=== PATIENT | female | born 1945 | race Caucasian/White ===

== ENCOUNTER 2018-10-18 15:52 | Inpatient (IN) | payer MEDICARE, OTHER ==
[~2018-10-18] VITALS: Ht 154.9 cm; Wt 69.9 kg
[~2018-10-18 15:52] MED LIST: ALEN70TA6 PO; AMLO5TAB9 PO; ASPI-605 PO; ATOR10TA PO; CALC-838 PO; DOCU100C36 PO; FAMO20TA8 PO; FLUT1DIS3 IH; LOSA50TA39 PO; NITR0.4T48 SL; OLAN2.5T3 PO; OMEG1CAP PO; OXYB5TAB PO; PARO20TA7 PO; POTA20TA83 PO; SUCR1TAB PO
--- NOTE | 2018-10-18 16:41 | NUR ---
Psych evaluation "I think shes having a mental breakdown. Paranoid/anxiety". PT BROUGHT IN BY FAMILY MEMBERS. STATED SAME THING HAPPENED 2 YEARS AGO, OBSSESSING OVER SIMPLE THING SUCH HOUSEWORK. NO ACUTE DISTRESS NOTED. SKIN INTACT. READY FOR EVAL.
[2018-10-18 17:09] LABS: BASOPHILS # (AUTO) 0.1 /CMM (0.0-0.2); BASOPHILS % (AUTO) 0.8 % (0.0-2.0); EOSINOPHILS % (AUTO) 0.7 % (0.0-6.0); HEMATOCRIT 37 % (33-45); HEMOGLOBIN 11.9 g/dL (11.5-14.8); LYMPHOCYTES # (AUTO) 2.1 /CMM (0.8-4.8); LYMPHOCYTES % (AUTO) 27.2 % (20.0-44.0); MEAN CORPUSCULAR HGB CONC 32 g/dl (31.0-36.0); MEAN CORPUSCULAR VOLUME 86 fL (82-100); MONOCYTES # (AUTO) 0.7 /CMM (0.1-1.30); MONOCYTES % (AUTO) 8.8 % (2.0-12.0); NEUTROPHILS # (AUTO) 4.8 /CMM (1.8-8.9); NEUTROPHILS % (AUTO) 62.5 % (43.0-81.0); PLATELET COUNT (AUTO) 269 /CMM (150-450); WHITE BLOOD COUNT (AUTO) 7.6 K/uL (4.3-11.0)
--- NOTE | 2018-10-18 17:16 | NUR ---
PT TAKEN TO CT VIA WC
[2018-10-18 17:19] LABS: CALCIUM, SERUM 9.2 mg/dL (8.5-10.1); CARBON DIOXIDE 27 mmol/L (21-32); CHLORIDE 107 mmol/L (98-107); CREATININE 0.8 mg/dL (0.6-1.3); GLUCOSE 92 mg/dL (74-106); POTASSIUM 3.2 mmol/L (3.5-5.1); SODIUM SERUM 142 mmol/L (136-145); UREA NITROGEN, BLOOD 23 mg/dL (7-18)
[2018-10-18 17:24] LABS: ALANINE AMINOTRANSFERASE 28 U/L (12-78); ALBUMIN 3.9 g/dL (3.4-5.0); ALKALINE PHOSPHATASE 75 U/L (46-116); ASPARTATE AMINOTRANSFERASE 16 U/L (15-37); BILIRUBIN,DIRECT 0.2 mg/dL (0.0-0.2); BILIRUBIN,TOTAL 0.6 mg/dL (0.2-1.0); TOTAL PROTEIN, SERUM 7.4 g/dL (6.4-8.2)
[2018-10-18 17:26] LABS: ACETAMINOPHEN < 2 ug/ml (10-30); ALCOHOL, BLOOD < 3 mg/dL (0-0); SALICYLATE < 2.8 mg/dL (2.8-20.0)
--- NOTE | 2018-10-18 17:32 | NUR ---
PROVIDED WATER PER PT REQUEST
--- NOTE | 2018-10-18 18:07 | NUR ---
URINE COLLECTED AND SENT TO STAT LAB
[2018-10-18 18:11] LABS: APPEARANCE,URINE Clear (CLEAR); BILIRUBIN,URINE Negative (NEGATIVE); BLOOD, URINE Trace-intact Ery/uL (NEGATIVE); COLOR,URINE Yellow (YELLOW); KETONES,URINE 15 (NEGATIVE); LEUKOCYTE ESTERASE ,URINE Trace (NEGATIVE); NITRITE, URINE Negative (NEGATIVE); PROTEIN,URINE 30 mg/dl (NEGATIVE); UGLUCOSE Negative (NEGATIVE); UROBILINOGEN,URINE 0.2 EU/dL (0.2)
--- NOTE | 2018-10-18 18:23 | NUR ---
PT RESTING IN BED WITH FAMILY MEMBERS. NO COMPLAINTS AT THIS TIME. VSS. WILL CONT TO MONITOR.
[2018-10-18 18:28] LABS: BACTERIA,URINE Moderate /HPF (None Seen); HYALINE CASTS, URINE Moderate /LPF (None Seen); SQUAMOUS EPITHELIAL CELL,UR Moderate /HPF (None Seen)
--- NOTE | 2018-10-18 18:43 | NUR ---
PAGED VACCINE SPECIALIST FOR [facility] HOPE DIRECTOR OPERATING ROOM - ETA 60 MIN
[2018-10-18] MEDS ORDERED: LORAZEPAM 1 MG TABLET PO ONE (19:00)
--- NOTE | 2018-10-18 19:21 | NUR ---
PERENNIAL HOUSE MANAGER PINKY AT BEDSIDE FOR EVAL
[2018-10-18] MEDS ORDERED: LORAZEPAM 0.5 MG TABLET ONE (19:27)
--- NOTE | 2018-10-18 20:23 | NUR ---
REPORT GIVEN TO MELLISSA FOR 214-A
--- NOTE | 2018-10-18 20:25 | NUR ---
GPS REQUEST XRAY TO BE COMPLETED BEFORE TRANSFER
--- NOTE | 2018-10-18 21:17 | NUR ---
PT TRANSFERRED TO FLOOR VIA WC
[2018-10-18 21:20] VITALS: BP 146/81
--- NOTE | 2018-10-18 21:20 | NUR ---
GPS ADMISSION NOTE, RECEIVED PATIENT FROM [facility] / [place]. PATIENT ARRIVED ON THIS UNIT AT 2120 VIA STRETCHER WITH 1 USABILITY STRATEGIST ESCORT. PATIENT ADMITTED ON A 5150 HOLD FOR GD. PER HOLD PATIENT IS CONFUSED, DISORGANIZED, AND DISORIENTED. ACCORDING TO PATIENT SISTER (RAO) PATIENT HAS BEEN INCREASINGLY ANXIOUS, RESTLESS, CONSTANTLY PACING, NOT EATING, NOT SLEEPING, EXHIBITING BIZARRE BEHAVIOR, AND OBSESSED WITH SMALL THINGS ASSOCIATED WITH PARANOIA. PATIENT HAS BEEN REFUSING MEDICATIONS AND IS UNABLE TO CARE FOR SELF. THE 5150 WAS REVIEWED AND THE DOCUMENTATION IN THE 5150 HOLD APPEARS TO REFLECT THE PRESENTATION OF THE PATIENT. UPON FACE TO FACE ASSESSMENT PATIENT IS CURRENTLY LYING IN BED AWAKE, HAS NO S/S OR COMPLAINTS OF PAIN. PATIENT IS DISPLAYING NO S/S OF APPARENT DISTRESS. PATIENT BREATHING IS UNLABORED WITH EQUAL RISE AND FALL OF THE CHEST. PATIENT IS ALERT AND ORIENTATED X 2 ON ROOM AIR. PATIENT SPEAKS MOSTLY MALTESE BUT UNDERSTANDS SOME BARBADIAN. PATIENT ASSISTED WITH TURING AND REPOSITIONING Q2HR AND PRN FOR COMFORT AND CIRCULATION. PATIENT HAS NO NEEDS AT THIS TIME. PATIENT IS NOTED TO BEING WITHDRAWN, DEPRESSED, DISHEVELED, DISORGANIZED, CONFUSED, COOPERATIVE, AND NEEDS REDIRECTION. PATIENT DENIES SUICIDE IDEATIONS AND HOMICIDAL IDEATIONS AT THIS TIME. PATIENT IS UNDER THE PSYCHIATRIC CARE OF DR. SERRANO AND THE MEDICAL CARE OF DR GUNN. PATIENT BELONGINGS WERE INVENTORIED AND CHECKED FOR CONTRABAND. ALL CONTRABAND REMOVED AND STORED IN PATIENT HALLWAY LOCKER. PATIENT ADVANCED DIRECTIVES PREFERENCE, IMMUNIZATIONS QUESTIONER, NECESSARY PAPERWORK, AND SKIN ASSESSMENT COMPLETED. PATIENT ORIENTATED TO ROOM, FLOOR, AND STAFF WITH ALL QUESTIONS ANSWERED. PATIENT EDUCATED ON THE USE OF THE CALL LOTT. PATIENT BED SIDE RAILS ARE UP X 2 FOR SAFETY. PATIENT BED IS LOCKED, LOW AND I WILL CONTINUE TO MONITOR THIS PATIENT Q 15 MIN WITH THE HELP OF STAFF TO MAINTAIN SAFETY.
[2018-10-18] MEDS ORDERED: ACETAMINOPHEN 325 MG TABLET PO PRN (21:30)
[2018-10-18] MEDS ORDERED: MAG HYDROX/AL HYDROX/SIMETH 30 ML UDC PO PRN (21:30)
[2018-10-18] MEDS ORDERED: LORAZEPAM 0.5 MG TABLET PO PRN (21:30)
[2018-10-18] MEDS ORDERED: MAGNESIUM HYDROXIDE 30 ML UDC PO PRN (21:30)
[2018-10-18] MEDS ORDERED: TEMAZEPAM 7.5 MG CAPSULE PO PRN (21:30)
[2018-10-18] MEDS ORDERED: ALBU18HF2 INH (21:57)
[2018-10-18] MEDS ORDERED: OLOP5DRO EACHEYE (21:59)
[2018-10-18] MEDS ORDERED: POTASSIUM CHLORIDE 20 MEQ TAB.PRT.SR PO ONE (22:00)
[2018-10-18] MEDS ORDERED: CYCL30DR EACHEYE (22:00)
[2018-10-18] MEDS ORDERED: CEPHALEXIN MONOHYDRATE 500 MG CAPSULE PO SCH (22:00)
[2018-10-18] MEDS ORDERED: RANI150T8 PO (22:01)
[2018-10-18] MEDS ORDERED: MECL-102 PO (22:03)
[2018-10-18] MEDS ORDERED: CETI-102 PO (22:04)
[2018-10-18] MEDS ORDERED: FLUT1DIS3 INH (22:05)
[2018-10-18] MEDS ORDERED: LEVOFLOXACIN (500MG) 500 MG TABLET PO ONE (22:30)
[2018-10-18] MEDS: ATORVASTATIN 10 MG TABLET PO SCH (22:32)
[2018-10-18] MEDS: SUCRALFATE 1 G TABLET PO SCH (22:32)
[2018-10-18] MEDS ORDERED: ALBUTEROL FS 2.5 MG/3 ML VIAL.NEB NEB PRN (23:00)
[2018-10-19 07:24] LABS: CREATININE 0.8 mg/dL (0.6-1.3)
[2018-10-19 07:29] LABS: CHOLESTEROL 152 mg/dL (<200); HDL CHOLESTEROL 80 mg/dL (40-60); LDL 67 mg/dL (0-99); TRIGLYCERIDES 52 mg/dL (30-150)
[2018-10-19 08:00] VITALS: BP 123/67
[2018-10-19] MEDS: CALCIUM CARB 250MG /VITAMIN D 1 UDTAB PO SCH (08:22)
[2018-10-19] MEDS: SUCRALFATE 1 G TABLET PO SCH ×4 (08:22→21:44)
[2018-10-19] MEDS: AMLODIPINE BESYLATE 5 MG TABLET PO SCH (08:51)
[2018-10-19] MEDS: OXYBUTYNIN CHLORIDE ER 5 MG TAB PO SCH (08:51)
[2018-10-19] MEDS: FAMOTIDINE (20 MG) 20 MG TABLET PO SCH ×2 (08:52→17:00)
[2018-10-19] MEDS: LOSARTAN POTASSIUM 50 MG TABLET PO SCH (08:52)
[2018-10-19] MEDS: DOCUSATE SODIUM 100 MG CAPSULE PO SCH ×2 (08:54→17:00)
[2018-10-19] MEDS: FLUTICASONE/VILANTEROL 1 EACH BLST.W.DEV IH SCH (08:58)
[2018-10-19] MEDS ORDERED: ASPIRIN EC 81 MG TABLET.DR PO SCH (09:00)
[2018-10-19] MEDS ORDERED: VENLAFAXINE XR 37.5 MG CAP.SR.24H PO SCH (13:00)
--- NOTE | 2018-10-19 15:45 | NUR ---
SW spoke with pts sister Dinah [phone] regarding pts discharge plan. Sister stated pt will return home once discharged. Sister also provided SW with collateral information and stated shes pts [facility] caregiver.
[2018-10-19 16:00] VITALS: BP 135/67
[2018-10-19 20:43] VITALS: BP 100/72
[2018-10-19] MEDS: MIRTAZAPINE 15 MG TABLET PO SCH (21:44)
[2018-10-19] MEDS: ATORVASTATIN 10 MG TABLET PO SCH (21:44)
[2018-10-19] MEDS: LEVOFLOXACIN (250MG) 250 MG TABLET PO SCH (21:45)
[2018-10-19] MEDS ORDERED: risperiDONE 0.25 MG TABLET PO SCH (22:00)
[2018-10-20] MEDS: SUCRALFATE 1 G TABLET PO SCH ×4 (07:30→22:00)
[2018-10-20] MEDS: CALCIUM CARB 250MG /VITAMIN D 1 UDTAB PO SCH (07:30)
[2018-10-20 08:00] VITALS: BP 121/59
[2018-10-20] MEDS: FLUTICASONE/VILANTEROL 1 EACH BLST.W.DEV IH SCH (09:00)
[2018-10-20] MEDS: AMLODIPINE BESYLATE 5 MG TABLET PO SCH (09:00)
[2018-10-20] MEDS: DOCUSATE SODIUM 100 MG CAPSULE PO SCH ×2 (09:00→17:00)
[2018-10-20] MEDS: FAMOTIDINE (20 MG) 20 MG TABLET PO SCH ×2 (09:00→17:00)
[2018-10-20] MEDS: OXYBUTYNIN CHLORIDE ER 5 MG TAB PO SCH (09:00)
[2018-10-20] MEDS: LOSARTAN POTASSIUM 50 MG TABLET PO SCH (09:00)
--- NOTE | 2018-10-20 10:08 | NUR ---
INITIAL DISCHARGE PLAN: Patient wishes to return home to [id number] [place] [id number]. Pts sister Dinah [phone] has confirmed that it is safe for pt to return home once stable for discharge. SW will help form a safe and proper discharge in collaboration with .
[2018-10-20] MEDS: risperiDONE 0.25 MG TABLET PO SCH ×2 (13:30→17:00)
[2018-10-20 16:00] VITALS: BP 159/99
--- NOTE | 2018-10-20 17:51 | NUR ---
PT. SEEN ON THE VERY SIDE OF THE BED, DENIES HE FELL, HE SAID THAT HIS COFFEE FALL IN THE FLOOR. NO PAIN REPORTED. WILL CONTINUE TO MONITOR FOR SAFETY. Addendum: 10/20/18 at 1756 by CARLITOS SARKAR RN THIS DOCUMENTATION IS NOT FOR THIS PT.
[2018-10-20 20:00] VITALS: BP 130/87
[2018-10-20] MEDS: LEVOFLOXACIN (250MG) 250 MG TABLET PO SCH (22:00)
[2018-10-20] MEDS: MIRTAZAPINE 15 MG TABLET PO SCH (22:00)
[2018-10-20] MEDS: ATORVASTATIN 10 MG TABLET PO SCH (22:00)
--- NOTE | 2018-10-20 22:37 | NUR ---
REFUSED HER NIGHT MEDIATIONS, OFFERED TWICE AT 2100 AND AT 2200, SHE REPEATEDLY STATED, " NO, NOT TODAY." NOTIFIED CHARGE NURSE. AWARE IN THE DAYTIME, MEDS WERE REFUSED ALSO.
--- NOTE | 2018-10-21 00:18 | NUR ---
PATIENT WAS OFFERED SLEEPING PILLS, PATIENT REFUSED AGAIN.
[2018-10-21] MEDS: CALCIUM CARB 250MG /VITAMIN D 1 UDTAB PO SCH (07:30)
[2018-10-21] MEDS: SUCRALFATE 1 G TABLET PO SCH ×4 (07:30→22:00)
[2018-10-21 08:00] VITALS: BP 142/90
[2018-10-21] MEDS: FLUTICASONE/VILANTEROL 1 EACH BLST.W.DEV IH SCH (08:13)
[2018-10-21] MEDS: OXYBUTYNIN CHLORIDE ER 5 MG TAB PO SCH (08:14)
[2018-10-21] MEDS: risperiDONE 0.25 MG TABLET PO SCH ×3 (08:14→16:08)
[2018-10-21] MEDS: FAMOTIDINE (20 MG) 20 MG TABLET PO SCH ×2 (08:14→16:08)
[2018-10-21] MEDS: AMLODIPINE BESYLATE 5 MG TABLET PO SCH (08:14)
[2018-10-21] MEDS: DOCUSATE SODIUM 100 MG CAPSULE PO SCH ×2 (08:14→16:08)
[2018-10-21] MEDS: LOSARTAN POTASSIUM 50 MG TABLET PO SCH (08:14)
[2018-10-21] MEDS: VENLAFAXINE XR 37.5 MG CAP.SR.24H PO SCH (12:33)
[2018-10-21 16:00] VITALS: BP 151/90
--- NOTE | 2018-10-21 18:58 | NUR ---
DR. MENDOZA MADE AWARE OF PATIENT'S REFUSAL OF MEDICATIONS AND FOOD. NO NEW ORDER AT THIS TIME. PER MD, KEEP ENCOURAGING PATIENT.
[2018-10-21 20:00] VITALS: BP 112/92
[2018-10-21] MEDS: ATORVASTATIN 10 MG TABLET PO SCH (22:00)
[2018-10-21] MEDS: MIRTAZAPINE 15 MG TABLET PO SCH (22:00)
[2018-10-21] MEDS: LEVOFLOXACIN (250MG) 250 MG TABLET PO SCH (22:00)
--- NOTE | 2018-10-21 22:41 | NUR ---
REFUSED ALL HER NIGHT MEDICATIONS, ATTEMPTED X3, STILL REFUSED.
--- NOTE | 2018-10-22 04:40 | NUR ---
REFUSED SLEEPING PILL OFFERED LAST NIGHT
[2018-10-22] MEDS: CALCIUM CARB 250MG /VITAMIN D 1 UDTAB PO SCH (07:30)
[2018-10-22] MEDS: SUCRALFATE 1 G TABLET PO SCH ×4 (07:30→21:06)
[2018-10-22] MEDS: LOSARTAN POTASSIUM 50 MG TABLET PO SCH (08:54)
[2018-10-22] MEDS: DOCUSATE SODIUM 100 MG CAPSULE PO SCH ×2 (08:54→17:00)
[2018-10-22] MEDS: FLUTICASONE/VILANTEROL 1 EACH BLST.W.DEV IH SCH (08:54)
[2018-10-22] MEDS: FAMOTIDINE (20 MG) 20 MG TABLET PO SCH ×2 (08:55→17:00)
[2018-10-22] MEDS: AMLODIPINE BESYLATE 5 MG TABLET PO SCH (08:55)
[2018-10-22] MEDS: OXYBUTYNIN CHLORIDE ER 5 MG TAB PO SCH (08:55)
[2018-10-22] MEDS: risperiDONE 0.25 MG TABLET PO SCH ×3 (08:55→17:00)
[2018-10-22 12:30] LABS: BASOPHILS # (AUTO) 0.1 /CMM (0.0-0.2); EOSINOPHILS % (AUTO) 0.2 % (0.0-6.0); HEMATOCRIT 40 % (33-45); HEMOGLOBIN 12.8 g/dL (11.5-14.8); LYMPHOCYTES # (AUTO) 1.8 /CMM (0.8-4.8); LYMPHOCYTES % (AUTO) 18.1 % (20.0-44.0); MEAN CORPUSCULAR HGB CONC 32 g/dl (31.0-36.0); MEAN CORPUSCULAR VOLUME 86 fL (82-100); MONOCYTES # (AUTO) 0.8 /CMM (0.1-1.30); MONOCYTES % (AUTO) 8.2 % (2.0-12.0); NEUTROPHILS # (AUTO) 7.1 /CMM (1.8-8.9); NEUTROPHILS % (AUTO) 72.5 % (43.0-81.0); PLATELET COUNT (AUTO) 284 /CMM (150-450); RED BLOOD CELL COUNT(AUTO) 4.62 MIL/uL (4.0-5.2); WHITE BLOOD COUNT (AUTO) 9.8 K/uL (4.3-11.0)
[2018-10-22 12:41] LABS: CARBON DIOXIDE 23 mmol/L (21-32); CHLORIDE 105 mmol/L (98-107); CREATININE 1.5 mg/dL (0.6-1.3); GLUCOSE 99 mg/dL (74-106); MAGNESIUM 2.4 mg/dL (1.8-2.4); PHOSPHORUS 4.1 mg/dL (2.5-4.9); SODIUM SERUM 141 mmol/L (136-145); UREA NITROGEN, BLOOD 56 mg/dL (7-18)
[2018-10-22] MEDS: VENLAFAXINE XR 37.5 MG CAP.SR.24H PO SCH (13:00)
[2018-10-22 16:00] VITALS: BP 108/59
--- NOTE | 2018-10-22 18:03 | NUR ---
GPS/RN pt refused daily meds today offered on numerous occasions. communicated via Vietnamese speaking SHIPPER/RECEIVER's
[2018-10-22 20:36] VITALS: BP 107/57
[2018-10-22] MEDS: LEVOFLOXACIN (250MG) 250 MG TABLET PO SCH (21:06)
[2018-10-22] MEDS: ATORVASTATIN 10 MG TABLET PO SCH (21:06)
[2018-10-22] MEDS: MIRTAZAPINE 15 MG TABLET PO SCH (21:07)
--- NOTE | 2018-10-22 23:17 | NUR ---
GPS RN NOTE: BUN/56, CREATININE/1.5. CHARGE NURSE AWARE. PATIENT NOT EATING, AND REFUSED TO DRINK, WAS OFFERED SEVERAL TIMES BUT WOULD NOT TAKE FLUIDS NOR EAT. Addendum: 10/23/18 at 1556 by MARICRUZ BEAR RN GPS RN NOTE: DR ALAN MADE AWARE OF ABN BUN=57 & CR =1.5... HE SAID HE WILL F/U WITH PATIENT ABN LABS, NO LIQUID OR SOLID INTAKE.
[2018-10-23] MEDS: SUCRALFATE 1 G TABLET PO SCH ×4 (07:30→21:03)
[2018-10-23] MEDS: CALCIUM CARB 250MG /VITAMIN D 1 UDTAB PO SCH (07:30)
[2018-10-23 08:00] VITALS: BP 104/84
[2018-10-23] MEDS: LOSARTAN POTASSIUM 50 MG TABLET PO SCH (09:00)
[2018-10-23] MEDS: risperiDONE 0.25 MG TABLET PO SCH ×3 (09:00→16:32)
[2018-10-23] MEDS: OXYBUTYNIN CHLORIDE ER 5 MG TAB PO SCH (09:00)
[2018-10-23] MEDS: FAMOTIDINE (20 MG) 20 MG TABLET PO SCH ×2 (09:00→16:32)
[2018-10-23] MEDS: AMLODIPINE BESYLATE 5 MG TABLET PO SCH (09:00)
[2018-10-23] MEDS: DOCUSATE SODIUM 100 MG CAPSULE PO SCH ×2 (09:00→16:33)
[2018-10-23] MEDS: FLUTICASONE/VILANTEROL 1 EACH BLST.W.DEV IH SCH (09:00)
[2018-10-23] MEDS: VENLAFAXINE XR 37.5 MG CAP.SR.24H PO SCH (12:06)
[2018-10-23 16:00] VITALS: BP 125/91
[2018-10-23 20:00] VITALS: BP 102/73
[2018-10-23 20:08] VITALS: BP 102/73
[2018-10-23] MEDS: ATORVASTATIN 10 MG TABLET PO SCH (21:04)
[2018-10-23] MEDS: MIRTAZAPINE 15 MG TABLET PO SCH (21:04)
[2018-10-23] MEDS: LEVOFLOXACIN (250MG) 250 MG TABLET PO SCH (21:04)
--- NOTE | 2018-10-23 21:04 | NUR ---
RN NOTES PT REFUSING ALL PM MEDICATIONS DESPITE EDUCATION ON RISKS/BENEFITS X3. ABLE TO COMMUNICATE IN PASHTO. PASHTO SPEAKING NETSUITE CONSULTANT ALSO TO ASSIST, BUT PT STILL REFUSING. REFUSING ALL PO INTAKE AT THE MOMENT WELL. SUBGRADE TESTER AWARE Addendum: 10/23/18 at 2129 by ALISSA MACK RN ON PREVIOUS ATTEMPT TO GIVE PT MEDS, WASTED CARAFATE AND REMERON DUE TO PACKAGING BEING OPENED. RETURNED LEVAQUIN AND LIPITOR TO THE [facility]. ATTEMPTED TO GIVE PT HER MEDICATIONS CRUSHED WITH APPLE SAUCE INSTEAD OF WHOLE WITH APPLE JUICE PER SUBGRADE TESTER. PT STILL REFUSING DESPITE HELP FROM NETSUITE CONSULTANT'S. CLENCHING TEETH AND UNWILLING TO OPEN MOUTH. MEDICATIONS WASTED, SUBGRADE TESTER AWARE AGAIN.
--- NOTE | 2018-10-24 00:31 | NUR ---
TECH AT BEDSIDE FOR US BLADDER/KIDNEYS. TECH UNABLE TO GET US BLADDER POST VOID DUE TO PT UNABLE TO VOID AT THIS TIME Addendum: 10/24/18 at 0041 by ALISSA MACK RN PER US TECH, CANCEL ORDER FOR US BLADDER. ORDER FOR US KIDNEY AUTOMATICALLY INCLUDES US BLADDER
--- NOTE | 2018-10-24 06:46 | NUR ---
PT VOIDED IN THE TOILET. RADIOLOGY/ULTRASOUND CALLED FOR POST VOID BLADDER US, NO RESPONSE. WILL ENDORSE TO DAY SHIFT RN
[2018-10-24] MEDS: SUCRALFATE 1 G TABLET PO SCH ×3 (07:30→17:30)
[2018-10-24 08:00] VITALS: BP 110/63
[2018-10-24] MEDS: LOSARTAN POTASSIUM 50 MG TABLET PO SCH (09:00)
[2018-10-24] MEDS: AMLODIPINE BESYLATE 5 MG TABLET PO SCH (09:00)
[2018-10-24] MEDS: risperiDONE 0.25 MG TABLET PO SCH ×2 (09:49→13:54)
[2018-10-24] MEDS: OXYBUTYNIN CHLORIDE ER 5 MG TAB PO SCH (09:49)
[2018-10-24] MEDS: CALCIUM CARB 250MG /VITAMIN D 1 UDTAB PO SCH (09:49)
[2018-10-24] MEDS: FAMOTIDINE (20 MG) 20 MG TABLET PO SCH ×2 (09:50→17:00)
[2018-10-24] MEDS: DOCUSATE SODIUM 100 MG CAPSULE PO SCH ×2 (09:50→17:00)
[2018-10-24] MEDS: FLUTICASONE/VILANTEROL 1 EACH BLST.W.DEV IH SCH (09:52)
[2018-10-24 11:44] LABS: CALCIUM, SERUM 10.1 mg/dL (8.5-10.1); CARBON DIOXIDE 22 mmol/L (21-32); CHLORIDE 106 mmol/L (98-107); CREATININE 2.2 mg/dL (0.6-1.3); GLUCOSE 205 mg/dL (74-106); POTASSIUM 3.5 mmol/L (3.5-5.1); SODIUM SERUM 141 mmol/L (136-145); UREA NITROGEN, BLOOD 75 mg/dL (7-18)
[2018-10-24] MEDS: VENLAFAXINE XR 37.5 MG CAP.SR.24H PO SCH (13:54)
[2018-10-24 16:00] VITALS: BP 117/52
--- NOTE | 2018-10-24 16:00 | NUR ---
RN-CO: Dr Howe seen and examined the patient with order to discharge patient to medical floor for elevated BUN 75. Continue legal hold.
[2018-10-24] MEDS ORDERED: risperiDONE 0.25 MG TABLET PO SCH ×2 (17:00)
--- NOTE | 2018-10-24 17:33 | NUR ---
RN NOTE: NOTIFIED WITH RESULT OF BUN 75 AND CREATININE 2.2 WITH NEW ORDER TO TRANSFER MED SURGE , REPORT GIVEN TO RONNY MILLER AND PATIENT TRANSFERRED ON 5250 HOLD WITH SITTER TO MED SURGE FLOOR .
[2018-10-24] MEDS ORDERED: CALC-7 PO (18:18)
[2018-10-24] MEDS ORDERED: MAG30ORA PO (18:18)
[2018-10-24] MEDS ORDERED: TEMA7.5C12 PO (18:18)
[2018-10-24] MEDS ORDERED: LEVO250T59 PO (18:18)
[2018-10-24] MEDS ORDERED: ACET-868 PO (18:18)
[2018-10-24] MEDS ORDERED: LORA0.5T PO (18:18)
[2018-10-24] MEDS ORDERED: ALBU2.5V38 IH (18:18)
[2018-10-24] MEDS ORDERED: RISP0.253 PO (18:18)
[2018-10-24] MEDS ORDERED: FLUT1BLS IH (18:18)
[2018-10-24] MEDS ORDERED: MAGN400O6 PO (18:18)
== END 2018-10-24 18:08 | disposition home or self-care (01) | DRG 885 ==
LOC: ER 15:57 → GPS 20:01
PROVIDERS: ADMIT Psychiatry & Neurology Psychosomatic Medicine; ATTEND Psychiatry & Neurology Psychosomatic Medicine
DX: F29 Unspecified psychosis not due to a substance or known physiological condition (principal); F01.50 Vascular dementia, unspecified severity, without behavioral disturbance, psychotic disturbance, mood disturbance, and anxiety; N17.0 Acute kidney failure with tubular necrosis; G93.41 Metabolic encephalopathy; F32.3 Major depressive disorder, single episode, severe with psychotic features; N39.0 Urinary tract infection, site not specified; E87.6 Hypokalemia; K21.9 Gastro-esophageal reflux disease without esophagitis; I10 Essential (primary) hypertension; Z87.11 Personal history of peptic ulcer disease; Z88.0 Allergy status to penicillin; R33.9 Retention of urine, unspecified
CPT/HCPCS: 36415; 70450-TC; 73080-TC; 76770-TC; 80048-TC; 80061-TC; 80076-TC; 80305; 81000-TC; 82565-TC; 83735-TC; 84100-TC; 84484-TC; 85025-TC; 87081-TC; 87086-TC; 94799-TC; G0480

== ENCOUNTER 2018-10-24 16:58 | Inpatient (IN) | payer MEDICARE, OTHER ==
[~2018-10-24] VITALS: Ht 154.9 cm; Wt 69.9 kg
[~2018-10-24 16:58] MED LIST changes: +ALBU18HF2 INH; +CETI-102 PO; +CYCL30DR EACHEYE; +FLUT1DIS3 INH; +MECL-102 PO; +OLOP5DRO EACHEYE; +RANI150T8 PO
--- NOTE | 2018-10-24 17:30 | NUR ---
MS RN NOTES PATIENT ARRIVED ON FLOOR FROM GPS ALERT, ORIENTED X1. CONFUSED. PATIENT SEEMS DEPRESSED. PATIENT REFUSED DETAILED SKIN ASSESSMENT. PATIENT SITTING ON CHAIR WITH SITTER AT BEDSIDE. PERIPHERAL IV STARTED ON LEFT HAND. DR. ALAN MADE AWARE OF PATIENTS ARRIVAL. MED RECON COMPLETED. WILL CONTINUE TO MONITOR.
[2018-10-24] MEDS ORDERED: LEVO250T59 PO (18:18)
[2018-10-24] MEDS ORDERED: ACET-868 PO (18:18)
[2018-10-24] MEDS ORDERED: TEMA7.5C12 PO (18:18)
[2018-10-24] MEDS ORDERED: CALC-7 PO (18:18)
[2018-10-24] MEDS ORDERED: FLUT1BLS IH (18:18)
[2018-10-24] MEDS ORDERED: RISP0.253 PO (18:18)
[2018-10-24] MEDS ORDERED: MAG30ORA PO (18:18)
[2018-10-24] MEDS ORDERED: LORA0.5T PO (18:18)
[2018-10-24] MEDS ORDERED: MAGN400O6 PO (18:18)
[2018-10-24] MEDS ORDERED: ALBU2.5V38 IH (18:18)
--- NOTE | 2018-10-24 19:24 | NUR ---
MS RN NOTES PATIENT ON NOE CHAIR. ALERT ORIENTED X1. PATIENT MINIMAL RESPONSIVE TO QUESTIONS. SITTER AT BEDSIDE. ENDORSED CARE TO PM SHIFT.
--- NOTE | 2018-10-24 19:30 | NUR ---
MS RN INITIAL NOTES Patient is awake, sitting up in Daija-chair. Appears calm, Equatorial Guinean speaking, denies pain, family at the bedside. Patient is on 5250 hold expires on 11/04/17, sitter at the bedside. Awaiting orders, Dr. Rucker was informed.
[2018-10-24 20:00] VITALS: BP 103/74
[2018-10-24 20:30] VITALS: BP 103/74
[2018-10-24] MEDS ORDERED: TEMAZEPAM 7.5 MG CAPSULE PO PRN (21:00)
[2018-10-24] MEDS ORDERED: ONDANSETRON HCL/PF 4 MG/2 ML VIAL IVP PRN (21:00)
[2018-10-24] MEDS ORDERED: ACETAMINOPHEN 325 MG TABLET PO PRN (21:00)
[2018-10-24] MEDS ORDERED: MAG HYDROX/AL HYDROX/SIMETH 30 ML UDC PO PRN (21:00)
[2018-10-24] MEDS ORDERED: ALENDRONATE 70 MG TABLET PO SCH (21:00)
[2018-10-24] MEDS ORDERED: NITROGLYCERIN 0.4 MG/TAB BOTTLE SL PRN (21:00)
[2018-10-24] MEDS ORDERED: Z GUARD REMEDY 2 OZ OINT TP PRN (21:00)
[2018-10-24] MEDS: IV NS 0.9% 1,000 ML IV PRN (21:50)
[2018-10-24] MEDS: ATORVASTATIN 10 MG TABLET PO SCH (21:59)
[2018-10-24] MEDS: LEVOFLOXACIN (250MG) 250 MG TABLET PO SCH (21:59)
[2018-10-24] MEDS: SUCRALFATE 1 G TABLET PO SCH (22:00)
[2018-10-24] MEDS: OLANZAPINE 2.5 MG TABLET PO SCH (22:00)
[2018-10-25 03:26] LABS: BASOPHILS % (AUTO) 0.9 % (0.0-2.0); EOSINOPHILS % (AUTO) 4.9 % (0.0-6.0); HEMATOCRIT 32 % (33-45); HEMOGLOBIN 10.7 g/dL (11.5-14.8); LYMPHOCYTES # (AUTO) 1.5 /CMM (0.8-4.8); LYMPHOCYTES % (AUTO) 27.1 % (20.0-44.0); MEAN CORPUSCULAR HGB CONC 33 g/dl (31.0-36.0); MEAN CORPUSCULAR VOLUME 87 fL (82-100); MONOCYTES # (AUTO) 0.6 /CMM (0.1-1.30); NEUTROPHILS # (AUTO) 3.2 /CMM (1.8-8.9); NEUTROPHILS % (AUTO) 57.1 % (43.0-81.0); PLATELET COUNT (AUTO) 208 /CMM (150-450); RED BLOOD CELL COUNT(AUTO) 3.75 MIL/uL (4.0-5.2); WHITE BLOOD COUNT (AUTO) 5.6 K/uL (4.3-11.0)
[2018-10-25 03:43] LABS: ALANINE AMINOTRANSFERASE 53 U/L (12-78); ALKALINE PHOSPHATASE 55 U/L (46-116); ASPARTATE AMINOTRANSFERASE 33 U/L (15-37); CALCIUM, SERUM 8.9 mg/dL (8.5-10.1); CARBON DIOXIDE 27 mmol/L (21-32); CHLORIDE 108 mmol/L (98-107); CREATININE 1.6 mg/dL (0.6-1.3); GLUCOSE 105 mg/dL (74-106); MAGNESIUM 2.2 mg/dL (1.8-2.4); PHOSPHORUS 3.9 mg/dL (2.5-4.9); POTASSIUM 3.1 mmol/L (3.5-5.1); SODIUM SERUM 143 mmol/L (136-145); TOTAL PROTEIN, SERUM 5.8 g/dL (6.4-8.2); UREA NITROGEN, BLOOD 73 mg/dL (7-18)
[2018-10-25 03:51] LABS: CHOLESTEROL 125 mg/dL (<200); HDL CHOLESTEROL 45 mg/dL (40-60); LDL 70 mg/dL (0-99); THYROID STIMULATING HORMONE 0.861 uIU/mL (0.358-3.74); TRIGLYCERIDES 57 mg/dL (30-150)
--- NOTE | 2018-10-25 06:29 | NUR ---
MS RN CLOSING NOTES Patient in bed, stable oxygen saturation on RA. IVF infusing, maintained at 100ml/hr, tolerating well. Ambulates independently, standby assist. Voiding without difficulty, denies pain. Patient in on 14 day hold, expires on 11/04/18, sitter at the bedside, psyche following. Will endorse to oncoming RN.
--- NOTE | 2018-10-25 06:53 | NUR ---
Troponin level elevated 0.057 (previous 0.054) patient denies pain, Pulse on 90's. Informed GARRETT Jacobo with no new orders at this time.
[2018-10-25] MEDS: IV NS 0.9% 1,000 ML IV PRN (06:56)
[2018-10-25] MEDS: CALCIUM CARB 250MG /VITAMIN D 1 UDTAB PO SCH (07:30)
[2018-10-25] MEDS: SUCRALFATE 1 G TABLET PO SCH ×4 (07:30→21:42)
[2018-10-25] MEDS ORDERED: ALBUTEROL FS 2.5 MG/3 ML VIAL.NEB NEB PRN (07:35)
--- NOTE | 2018-10-25 07:47 | NUR ---
MS/RN Patient received Patient received from manager shift. A/O X1, confused Serbian speaking only, remains on hold with sitter at bedside. Calm and cooperative at this time, awaiting morning blood draw results. Does not appear in any pain or distress. Will continue to monitor and ensure safety.
[2018-10-25] MEDS: ASPIRIN EC 81 MG TABLET.DR PO SCH (08:44)
[2018-10-25] MEDS: cetrizine 10 MG TABLET PO SCH (08:44)
[2018-10-25] MEDS: DOCUSATE SODIUM 100 MG CAPSULE PO SCH ×2 (08:44→16:50)
[2018-10-25] MEDS: POTASSIUM CHLORIDE 20 MEQ TAB.PRT.SR PO SCH (08:44)
[2018-10-25] MEDS: FAMOTIDINE (20 MG) 20 MG TABLET PO SCH ×2 (08:44→16:51)
[2018-10-25] MEDS: PAROXETINE HCL 20 MG TABLET PO SCH (08:44)
[2018-10-25] MEDS: AMLODIPINE BESYLATE 5 MG TABLET PO SCH (08:47)
[2018-10-25] MEDS: OLOPATADINE HCL 0.1% OPHTH BOTTLE EACHEYE SCH ×2 (08:47→16:50)
[2018-10-25] MEDS: OXYBUTYNIN CHLORIDE ER 5 MG TAB PO SCH (08:47)
[2018-10-25] MEDS: FLUTICASONE/VILANTEROL 1 EACH BLST.W.DEV IH SCH (08:48)
[2018-10-25] MEDS: LOSARTAN POTASSIUM 50 MG TABLET PO SCH (08:48)
[2018-10-25] MEDS ORDERED: risperiDONE 0.25 MG TABLET PO SCH (09:00)
[2018-10-25] MEDS ORDERED: FLUTICASONE/SALMETEROL DISKUS IH SCH (09:00)
[2018-10-25] MEDS: POTASSIUM CL. PREMIX PERIPHER. 50 ML IV SCH ×4 (10:00→13:00)
--- NOTE | 2018-10-25 10:37 | NUR ---
MS/RN S/B Dr Lincoln Seen by Dr Lincoln - to commence IV hydration, cardiology consult for elevated troponins, and psych eval.
[2018-10-25] MEDS: risperiDONE-M 0.5 MG TAB.RAPDIS PO SCH ×2 (12:00→16:51)
[2018-10-25] MEDS ORDERED: VALPROATE 250 MG in IV D5W 100 ML IV SCH (12:00)
--- NOTE | 2018-10-25 12:17 | NUR ---
MS/RN S/B Dr Howe Seen by Dr Howe - unable to administer medications IV as patient is in the process of being RISK and currently waiting court date. If patient becomes severely agitated, than MD to be called and order will be given for IM medication to calm patient. Continue with current plan of care.
--- NOTE | 2018-10-25 14:56 | NUR ---
MS/RN Rounds Patient remains calm and cooperative at this time, sitter remains at bedside.
[2018-10-25 16:00] VITALS: BP 113/76
--- NOTE | 2018-10-25 18:10 | NUR ---
MS/RN End note Continues to refuse to take any oral medications, Dr Howe aware. Stated that medications could not be forced upon the patient until riese hearing which is scheduled for tomorrow. Family at bedside and updated as to plan of care. Will endorse to production shift supervisor.
--- NOTE | 2018-10-25 18:28 | NUR ---
MS/RN Room change Patient moved into room 327-1 due to isolation of previous patient.
--- NOTE | 2018-10-25 18:38 | NUR ---
MS/RN Turn and reposition Patient able to turn and reposition herself without any assistance.
--- NOTE | 2018-10-25 19:10 | NUR ---
RN MS OPENING NOTES RECEIVED PATIENT AWAKE ALERT AND ORIENTED X1 , CONFUSED AND REFUSIVE TO CARE AND MEDS AND RESISTIVE TO CARE, DESPITE EXPLANATION, PATIENT IS CURRENTLY IN HALLWAY WITH SITTER WALKING, REFUSES TO GO IN ROOM, OR SIT AT THIS TIME DESPITE CHAIR BEING OFFERED, HOWEVER SHE IS STEADY WALKING, BED SIDE COMMODE OFFERED , PATIENT REFUSED, REFUSING IV HYDRATION AT THIS TIME WELL. FLUIDS AND WATER OFFERED, 1 JUICE TAKEN, NO WATER AT THIS TIME, WILL CONTINUE TO OFFER AND MONITOR FOR URINE OUTPUT, PATIENT IS ON A 52/50 HOLD, SITTER AT BEDSIDE, IV SITE TO RIGHT WRIST #22 G INTACT AND PATENT, NO REDNESS, NO INFILTRATION PRESENT,ORIENTED TO STAFF AND CALL LIGHT, SAFETY PRECAUTIONS IN PLACE, ALL NEEDS ATTENDED AT THIS TIME,WILL CONTINUE TO MONITOR.
[2018-10-25 20:00] VITALS: BP 121/77
[2018-10-25] MEDS: ATORVASTATIN 10 MG TABLET PO SCH (21:43)
[2018-10-25] MEDS: OLANZAPINE 2.5 MG TABLET PO SCH (21:43)
[2018-10-25] MEDS: LEVOFLOXACIN (250MG) 250 MG TABLET PO SCH (21:43)
--- NOTE | 2018-10-25 21:43 | NUR ---
PAUL MS NOTES PATIENT REFUSED MEDICATION ALL MEDS AT TIME, ALSO OFFERED BED COMMODE AND PATIENT REFUSED. Addendum: 10/25/18 at 2146 by FERDINAND GILLIAM RN WILL CONTINUE TO MONITOR FOR URINE OUTPUT
--- NOTE | 2018-10-25 22:36 | NUR ---
RN MS NOTES PATIENT REFUSING IVF AT THIS TIME WILL CONTINUE TO OFFER FLUIDS
--- NOTE | 2018-10-26 02:00 | NUR ---
RN MS NOTES AT THIS TIME PATIENT AGREED TO IVF. IV SITE INTACT AND PATENT.
[2018-10-26] MEDS: IV NS 0.9% 1,000 ML IV PRN (05:03)
--- NOTE | 2018-10-26 05:55 | NUR ---
RN MS NOTES PATIENT VOID 950ML EKG DONE NORMAL SR 74 SKIN ASSESSED INTACT.
--- NOTE | 2018-10-26 06:27 | NUR ---
RN MS CLOSING NOTES PATIENT IN BED SLEEPING BUT EASILY AROUSABLE,ALERT AND ORIENTED X1 , CONFUSED AND REFUSIVE TO CARE AND MEDS AND RESISTIVE TO CARE AT TIMES, DESPITE EXPLANATION, PERINEAL CARE PROVIDED , SKIN ASSESSED SACRAL AND HEELS REMAIN INTACT AND CLEAN, , BED SIDE COMMODE OFFERED THROUGHOUT SHIFT, IVF RUNNING ORDERED, IV SITE TO RIGHT WRIST # 20 G INTACT AND PATENT, NO REDNESS, NO INFILTRATION PRESENT, FLUIDS AND WATER OFFERED, 1 JUICE TAKEN IN WHOLE SHIFT DESPITE OFFERING WATER AND SNACKS, PATIENT IS ON A 52/50 HOLD, SITTER AT BEDSIDE,CALL LIGHT WITHIN REACH, SAFETY PRECAUTIONS IN PLACE, ALL NEEDS ATTENDED AT THIS TIME,WILL CONTINUE TO MONITOR, ADDRESS NEEDS AND ENDORSE TO NEXT SHIFT.
[2018-10-26 06:43] LABS: BASOPHILS % (AUTO) 0.5 % (0.0-2.0); EOSINOPHILS % (AUTO) 4.3 % (0.0-6.0); HEMATOCRIT 37 % (33-45); HEMOGLOBIN 12.1 g/dL (11.5-14.8); LYMPHOCYTES # (AUTO) 1.7 /CMM (0.8-4.8); LYMPHOCYTES % (AUTO) 28.5 % (20.0-44.0); MEAN CORPUSCULAR HGB CONC 33 g/dl (31.0-36.0); MEAN CORPUSCULAR VOLUME 86 fL (82-100); MONOCYTES # (AUTO) 0.6 /CMM (0.1-1.30); MONOCYTES % (AUTO) 10.4 % (2.0-12.0); NEUTROPHILS # (AUTO) 3.4 /CMM (1.8-8.9); NEUTROPHILS % (AUTO) 56.3 % (43.0-81.0); PLATELET COUNT (AUTO) 214 /CMM (150-450); RED BLOOD CELL COUNT(AUTO) 4.29 MIL/uL (4.0-5.2)
[2018-10-26 06:50] LABS: ALANINE AMINOTRANSFERASE 53 U/L (12-78); ALBUMIN 3.5 g/dL (3.4-5.0); ALKALINE PHOSPHATASE 64 U/L (46-116); ASPARTATE AMINOTRANSFERASE 33 U/L (15-37); CALCIUM, SERUM 8.6 mg/dL (8.5-10.1); GLUCOSE 79 mg/dL (74-106); MAGNESIUM 1.8 mg/dL (1.8-2.4); TOTAL PROTEIN, SERUM 6.7 g/dL (6.4-8.2); UREA NITROGEN, BLOOD 35 mg/dL (7-18)
[2018-10-26 06:55] LABS: CARBON DIOXIDE 29 mmol/L (21-32); CHLORIDE 107 mmol/L (98-107); SODIUM SERUM 147 mmol/L (136-145)
[2018-10-26 07:30] LABS: POTASSIUM 2.8 mmol/L (3.5-5.1)
[2018-10-26] MEDS: CALCIUM CARB 250MG /VITAMIN D 1 UDTAB PO SCH (07:30)
[2018-10-26] MEDS: SUCRALFATE 1 G TABLET PO SCH ×4 (07:30→22:00)
--- NOTE | 2018-10-26 07:30 | NUR ---
MS RN Opening Notes Patient asleep, resting in bed. Semi-Fowlers position. Alert and oriented x1, able to make needs known but confusion present. Divehi-speaking. [address] Hallucinations present. Denies suicidal or homicidal ideations at this time. Resistant to care despite multiple explanations. No complaints of pain at this time. Respirations even and unlabored on room air, no acute distress noted. Peripheral IV to the right wrist 22 gauge, intact, patent and infusing fluids. 1:1 sitter at bedside for safety and per psychiatric protocol. Safety checks conducted every 15 minutes. Updated patient on current plan of care and safety measures. Safety and fall precautions in place: bed in lowest and locked position, side rails up x2, bed alarm on, call light within reach. Will continue to monitor and intervene as needed.
[2018-10-26 08:00] VITALS: BP 132/90
[2018-10-26] MEDS: AMLODIPINE BESYLATE 5 MG TABLET PO SCH (09:00)
[2018-10-26] MEDS: POTASSIUM CHLORIDE 20 MEQ TAB.PRT.SR PO SCH (09:00)
[2018-10-26] MEDS: risperiDONE-M 0.5 MG TAB.RAPDIS PO SCH (09:00)
[2018-10-26] MEDS: OLOPATADINE HCL 0.1% OPHTH BOTTLE EACHEYE SCH ×2 (09:00→17:00)
[2018-10-26] MEDS: OXYBUTYNIN CHLORIDE ER 5 MG TAB PO SCH (09:00)
[2018-10-26] MEDS: ASPIRIN EC 81 MG TABLET.DR PO SCH (09:00)
[2018-10-26] MEDS: FAMOTIDINE (20 MG) 20 MG TABLET PO SCH ×2 (09:00→17:00)
[2018-10-26] MEDS: LOSARTAN POTASSIUM 50 MG TABLET PO SCH (09:00)
[2018-10-26] MEDS: cetrizine 10 MG TABLET PO SCH (09:00)
[2018-10-26] MEDS: PAROXETINE HCL 20 MG TABLET PO SCH (09:00)
[2018-10-26] MEDS: DOCUSATE SODIUM 100 MG CAPSULE PO SCH ×2 (09:00→17:00)
[2018-10-26] MEDS: FLUTICASONE/VILANTEROL 1 EACH BLST.W.DEV IH SCH (09:00)
[2018-10-26] MEDS ORDERED: POTASSIUM CHLORIDE 20 MEQ TAB.PRT.SR PO ONE (10:00)
--- NOTE | 2018-10-26 10:00 | NUR ---
MS quarryman Note Patient refusing all medications, including psychiatric medications despite multiple attempts and explanations of risks and benefits. Psychiatric MD aware. Pending Riese hearing this AM, reviewed medications with team and patient's current refusal. Will continue to monitor.
[2018-10-26] MEDS ORDERED: POTASSIUM CL. PREMIX PERIPHER. 50 ML IV SCH (10:30)
[2018-10-26] MEDS: OLANZAPINE 2.5 MG TABLET PO SCH ×2 (10:30→17:00)
--- NOTE | 2018-10-26 11:00 | NUR ---
MS casing material weigher Note Spoke with Dr. Howe regarding current Riese hearing this AM. Read-back and verified acknowledgment of new protocol for patient's psychiatric medications. Will offer PO antipsychotics then move to IM if continued refusal. Will continue to monitor. Addendum: 10/26/18 at 1150 by JENNA ROMERO RN IV Potassium replacement ordered per Dr. Disla. Will implement once patient is properly medicated as she is currently refusing all medications. MD aware of plan of care.
[2018-10-26] MEDS: OLANZAPINE 10 MG VIAL IM PRN ×2 (12:30→17:51)
[2018-10-26 16:00] VITALS: BP 128/89
--- NOTE | 2018-10-26 17:00 | NUR ---
Patient refused both PO Zyprexa orders, became increasingly agitated throughout shift. Per orders, gave Zyprexa IM for psychiatric management. Will continue to monitor patient.
--- NOTE | 2018-10-26 18:39 | NUR ---
IV Potassium replacement ordered per Dr. Disla. Unable to give this shift due to increased patient agitation and non-compliance. Will implement once patient is properly medicated as she is currently refusing all medications, including IV. MD aware of plan of care. Will endorse to material handler 1st shift RN.
--- NOTE | 2018-10-26 18:40 | NUR ---
MS RN Closing Notes Patient awake, resting in chair. Semi-Fowlers position. Alert and oriented x1, able to make needs known but confusion present. Pashto-speaking. [address] Hallucinations present. Denies suicidal or homicidal ideations at this time. Resistant to care despite multiple explanations, Riese orders carried out this shift. No complaints of pain at this time. Respirations even and unlabored on room air, no acute distress noted. Peripheral IV to the right wrist 22 gauge, intact, patent and saline locked. See previous noted regarding IV medications. 1:1 sitter at bedside for safety and per psychiatric protocol. Safety checks conducted every 15 minutes. Updated patient on current plan of care and safety measures. Safety and fall precautions in place: bed in lowest and locked position, side rails up x2, bed alarm on, call light within reach. Family present at bedside, understands current plan of care. Will endorse to shoe fitter RN for continuity of care.
--- NOTE | 2018-10-26 19:30 | NUR ---
RN MS OPENING NOTES RECEIVED PATIENT IN CHAIR. ALERT AND ORIENTED X1, CONFUSED. [place] SPEAKING. ON 5250 HOLD. SITTER AT BEDSIDE. BREATHING EVEN AND UNLABORED. NO SOB NOTED. TOLERATING ROOM AIR. NO COMPLAINTS OF PAIN OR DISCOMFORT. NO FACIAL GRIMACING IV ON RIGHT WRIST INTACT AND PATENT. REFUSING TO BE ON IVF. SKIN DRY AND WARM TO TOUCH. AFEBRILE. ALL OTHER NEEDS ATTENDED TO. SAFETY MEASURES IN PLACE. WILL CONTINUE TO MONITOR.
[2018-10-26 20:00] VITALS: BP 127/81
[2018-10-26] MEDS: ATORVASTATIN 10 MG TABLET PO SCH (22:00)
[2018-10-26] MEDS: LEVOFLOXACIN (250MG) 250 MG TABLET PO SCH (22:00)
--- NOTE | 2018-10-26 22:15 | NUR ---
RN MS NOTES PATIENT REFUSED ALL PM MEDICATIONS DESPITE EXPLANATION OF RISKS AND BENEFITS. PATIENT ALSO REFUSES TO BE HOOKED BACK ON IVF OR TAKE ANY FLUIDS PO. WILL CONTINUE TO MONITOR.
--- NOTE | 2018-10-26 22:30 | NUR ---
RN MS NOTES PATIENT REFUSES TO LAY DOWN. RESISTANT TO CARE. NONCOMPLIANT WITH MEDICAL MANAGEMENT. WILL CONTINUE TO MONITOR.
--- NOTE | 2018-10-27 06:56 | NUR ---
RN MS OPENING NOTES PATIENT RESTING IN CHAIR. ALERT AND ORIENTED X1, CONFUSED. ON 5250 HOLD. SITTER AT BEDSIDE. REFUSED MEDICAL MANAGEMENT THROUGHOUT SHIFT. BREATHING EVEN AND UNLABORED. NO SOB NOTED. TOLERATING ROOM AIR. NO COMPLAINTS OF PAIN OR DISCOMFORT. NO FACIAL GRIMACING IV ON RIGHT WRIST INTACT AND PATENT. REFUSING TO BE ON IVF. SKIN DRY AND WARM TO TOUCH. AFEBRILE. ALL OTHER NEEDS ATTENDED TO. SAFETY MEASURES IN PLACE. WILL ENDORSE TO ONCOMING NURSE FOR REG.
--- NOTE | 2018-10-27 06:57 | NUR ---
RN MS NOTES MADE DR. COTA AWARE OF PATIENTS REFUSAL TO EAT, DRINK, TAKE MEDS, AND IVF. NO NEW ORDERS AT THIS TIME WILL CONTINUE TO MONITOR.
[2018-10-27] MEDS: SUCRALFATE 1 G TABLET PO SCH ×4 (07:30→21:13)
[2018-10-27] MEDS: CALCIUM CARB 250MG /VITAMIN D 1 UDTAB PO SCH (07:30)
--- NOTE | 2018-10-27 08:14 | NUR ---
pt refused AM lab draw, exp b/r x3, still refused
[2018-10-27] MEDS: OXYBUTYNIN CHLORIDE ER 5 MG TAB PO SCH (09:00)
[2018-10-27] MEDS: OLOPATADINE HCL 0.1% OPHTH BOTTLE EACHEYE SCH ×2 (09:00→17:00)
[2018-10-27] MEDS: AMLODIPINE BESYLATE 5 MG TABLET PO SCH (09:00)
[2018-10-27] MEDS: cetrizine 10 MG TABLET PO SCH (09:00)
[2018-10-27] MEDS: ASPIRIN EC 81 MG TABLET.DR PO SCH (09:00)
[2018-10-27] MEDS: OLANZAPINE 2.5 MG TABLET PO SCH ×2 (09:00→17:00)
[2018-10-27] MEDS: LOSARTAN POTASSIUM 50 MG TABLET PO SCH (09:00)
[2018-10-27] MEDS: FLUTICASONE/VILANTEROL 1 EACH BLST.W.DEV IH SCH (09:00)
[2018-10-27] MEDS: FAMOTIDINE (20 MG) 20 MG TABLET PO SCH ×2 (09:00→17:00)
[2018-10-27] MEDS: POTASSIUM CHLORIDE 20 MEQ TAB.PRT.SR PO SCH (09:00)
[2018-10-27] MEDS: DOCUSATE SODIUM 100 MG CAPSULE PO SCH ×2 (09:00→17:00)
[2018-10-27] MEDS: PAROXETINE HCL 20 MG TABLET PO SCH (09:00)
[2018-10-27] MEDS ORDERED: IV NS 0.9% 1,000 ML IV PRN (09:41)
[2018-10-27] MEDS: POTASSIUM CL. PREMIX PERIPHER. 50 ML IV SCH ×5 (10:41→14:41)
[2018-10-27 13:00] LABS: CARBON DIOXIDE 26 mmol/L (21-32); CHLORIDE 106 mmol/L (98-107); CREATININE 1.5 mg/dL (0.6-1.3); GLUCOSE 122 mg/dL (74-106); SODIUM SERUM 142 mmol/L (136-145); UREA NITROGEN, BLOOD 43 mg/dL (7-18)
[2018-10-27 13:16] LABS: POTASSIUM 2.8 mmol/L (3.5-5.1)
[2018-10-27 20:00] VITALS: BP 85/52
[2018-10-27] MEDS: LEVOFLOXACIN (250MG) 250 MG TABLET PO SCH (21:13)
[2018-10-27] MEDS: ATORVASTATIN 10 MG TABLET PO SCH (21:13)
--- NOTE | 2018-10-27 21:45 | NUR ---
MS RN NOTE RECEIVED PT IN STABLE CONDITION A&O X1, FAMILY CURRENTLY AT BEDSIDE. 1:1 SITTER ALSO AT BEDSIDE. PT STILL ON 5250. NO SIGNS OF SOB OR DISTRESS NOTED. NO C/O PAIN. CALL CURRENT NEEDS MET. SAFETY PRECAUTIONS IN PLACE: BED LOW, LOCKED, WITH CALL LIGHT WITHIN REACH. WILL CONT TO MONITOR.
[2018-10-27] MEDS ORDERED: MIRTAZAPINE 15 MG TABLET PO SCH (22:00)
[2018-10-27] MEDS ORDERED: MIRTAZAPINE SOLUTAB 15 MG/UDTABLET TAB.RAPDIS PO SCH (22:00)
--- NOTE | 2018-10-27 22:01 | NUR ---
MS RN NOTE PT IV LINE NO LONGER INTACT. ATTEMPTED TO START LINE 4X. PT REFUSED A 5TH DRAW. PT. RECEIVING POTASSIUM SUPPLEMENT VIA IV. NOTIFIED EMMA TUCKER OF PT REFUSAL FOR NEW IV LINE. IV POTASSIUM D/C WITH NEW ORDERS FOR PO KDURR 40 MEQ AT 2230 AND ANOTHER DOSE OF KDURR 40 MEQ AT 0300. NEW ORDER CARRIED OUT.
[2018-10-27] MEDS ORDERED: POTASSIUM CHLORIDE 20 MEQ TAB.PRT.SR PO ONE (22:30)
[2018-10-28] MEDS ORDERED: POTASSIUM CHLORIDE 20 MEQ TAB.PRT.SR PO ONE (03:00)
--- NOTE | 2018-10-28 06:31 | NUR ---
MS RN NOTE PT IN STABLE CONDITION A&O X1, FAMILY CURRENTLY AT BEDSIDE. 1:1 SITTER ALSO AT BEDSIDE. PT ON 5250 HOLD. PT STILL REFUSING FOR NEW IV LINE TO BE STARTED. ALL PO MEDICATIONS GIVEN ORDERED. NO SIGNS OF SOB OR DISTRESS NOTED. NO C/O PAIN. CALL CURRENT NEEDS MET. SAFETY PRECAUTIONS IN PLACE: BED LOW, LOCKED, WITH CALL LIGHT WITHIN REACH. WILL CONT TO MONITOR AND ENDORSE TO NEXT SHIFT FOR REG.
--- NOTE | 2018-10-28 07:35 | NUR ---
MS RN OPENING NOTE RECEIVED PATIENT IN BED. ALERT ORIENTED X2. ON ROOM AIR, TOLERATING WELL IN NO APPARENT DISTRESS OR DISCOMFORT AT THIS TIME. RESPIRATIONS EVEN AND UNLABORED. DENIES PAIN AND SOB. PATIENT IS ABLE TO COMMUNICATE NEEDS. NO IV ACCESS PRESENT, HOSPITALIST AWARE. PATIENT REFUSES NEW IV LINE. PATIENT IS ON HOLD, SITTER AVAILABLE AT BEDSIDE FOR SAFETY. PATIENT IS ABLE TO AMBULATE WITH ASSIST. ALL NEEDS ATTENDED, SAFETY MEASURES IN PLACE, BED IN LOW LOCKED POSITION SIDE RAILS UP X2, CALL LIGHT WITHIN EASY REACH. WILL CONTINUE TO MONITOR.
[2018-10-28 08:34] LABS: ALANINE AMINOTRANSFERASE 41 U/L (12-78); ALBUMIN 3.2 g/dL (3.4-5.0); ALKALINE PHOSPHATASE 58 U/L (46-116); ASPARTATE AMINOTRANSFERASE 23 U/L (15-37); CARBON DIOXIDE 24 mmol/L (21-32); CHLORIDE 111 mmol/L (98-107); CREATININE 1.1 mg/dL (0.6-1.3); GLUCOSE 84 mg/dL (74-106); MAGNESIUM 1.7 mg/dL (1.8-2.4); PHOSPHORUS 2.5 mg/dL (2.5-4.9); POTASSIUM 3.9 mmol/L (3.5-5.1); SODIUM SERUM 146 mmol/L (136-145); TOTAL PROTEIN, SERUM 6.3 g/dL (6.4-8.2); UREA NITROGEN, BLOOD 36 mg/dL (7-18)
[2018-10-28] MEDS: PAROXETINE HCL 20 MG TABLET PO SCH (08:48)
[2018-10-28] MEDS: DOCUSATE SODIUM 100 MG CAPSULE PO SCH (08:48)
[2018-10-28] MEDS: FLUTICASONE/VILANTEROL 1 EACH BLST.W.DEV IH SCH (08:48)
[2018-10-28] MEDS: ASPIRIN EC 81 MG TABLET.DR PO SCH (08:48)
[2018-10-28] MEDS: FAMOTIDINE (20 MG) 20 MG TABLET PO SCH (08:49)
[2018-10-28] MEDS: CALCIUM CARB 250MG /VITAMIN D 1 UDTAB PO SCH (08:49)
[2018-10-28] MEDS: SUCRALFATE 1 G TABLET PO SCH ×2 (08:49→12:00)
[2018-10-28] MEDS: POTASSIUM CHLORIDE 20 MEQ TAB.PRT.SR PO SCH (08:49)
[2018-10-28] MEDS: cetrizine 10 MG TABLET PO SCH (08:50)
[2018-10-28] MEDS: OLANZAPINE 2.5 MG TABLET PO SCH (08:50)
[2018-10-28] MEDS: OXYBUTYNIN CHLORIDE ER 5 MG TAB PO SCH (08:50)
[2018-10-28] MEDS: OLOPATADINE HCL 0.1% OPHTH BOTTLE EACHEYE SCH (08:50)
--- NOTE | 2018-10-28 08:50 | NUR ---
PATIENT IS STABLE. REPORT GIVEN TO OCTAVIANO MILLER FOR REG.
[2018-10-28 08:52] VITALS: BP 103/76
[2018-10-28] MEDS: LOSARTAN POTASSIUM 50 MG TABLET PO SCH (08:52)
[2018-10-28] MEDS: AMLODIPINE BESYLATE 5 MG TABLET PO SCH (08:52)
[2018-10-28] MEDS ORDERED: MAGNESIUM OXIDE 400 MG TABLET PO ONE (11:00)
--- NOTE | 2018-10-28 13:03 | NUR ---
TRANSFER NOTE PT WAS TRASNFERRED AT THIS TIME BACK DOWN TO GPS WHERE REPORT WAS GIVEN TO HUBERT. PT LEFT A/O X2, BREATHING EVEN AND UNLABORED, IV REMOVED, PT REFUSED MID DAY MEDS BUT DID TAKE HER MORNING MEDS, SHE REFUSED SKIN TO BE ASSESSED AND PHOTOGRAPHED. D/C PAPERWORK, EXITCARE, AND BELONGINGS LIST DISCUSSED AND SIGNED AND HANDED TO THE PATIENT. PT WAS TAKEN DOWN AT THIS BY ME VIA WHEELCHAIR TO GPS
[2018-10-28] MEDS ORDERED: ALLA266C2 TP (13:39)
[2018-10-28] MEDS ORDERED: ASPI-1152 PO (13:39)
[2018-10-28] MEDS ORDERED: OLAN10VI IM (13:39)
[2018-10-28] MEDS ORDERED: MIRT7.5T10 PO (13:39)
[2018-10-29] MEDS ORDERED: ALENDRONATE 70 MG TABLET PO SCH (07:30)
== END 2018-10-28 12:43 | DRG 682 ==
LOC: MED 16:58
PROVIDERS: ADMIT Internal Medicine; ATTEND Internal Medicine
DX: N17.0 Acute kidney failure with tubular necrosis (principal); G93.41 Metabolic encephalopathy; I21.A1 Myocardial infarction type 2; I12.9 Hypertensive chronic kidney disease with stage 1 through stage 4 chronic kidney disease, or unspecified chronic kidney disease; N18.9 Chronic kidney disease, unspecified; E86.0 Dehydration; E87.6 Hypokalemia; F25.0 Schizoaffective disorder, bipolar type; F09 Unspecified mental disorder due to known physiological condition; K21.9 Gastro-esophageal reflux disease without esophagitis; Z87.11 Personal history of peptic ulcer disease; Z91.19 Patient's noncompliance with other medical treatment and regimen
CPT/HCPCS: 36415; 71045-TC; 80048-TC; 80053-TC; 80061-TC; 82962-TC; 83735-TC; 84100-TC; 84443-TC; 84484-TC; 85025-TC; 87081-TC; G0378; J3480; J3490; J7030; J7040; J7060

== ENCOUNTER 2018-10-28 13:00 | Inpatient (IN) | payer MEDICARE, OTHER ==
[~2018-10-28] VITALS: Ht 154.9 cm; Wt 68.9 kg
[~2018-10-28 13:00] MED LIST changes: +ACET-868 PO; +ALBU2.5V38 IH; +CALC-7 PO; +FLUT1BLS IH; -FLUT1DIS3 IH; +LEVO250T59 PO; +LORA0.5T PO; +MAG30ORA PO; +MAGN400O6 PO; +RISP0.253 PO; +TEMA7.5C12 PO
[2018-10-28] MEDS ORDERED: MAG HYDROX/AL HYDROX/SIMETH 30 ML UDC PO PRN ×2 (13:30→19:00)
[2018-10-28] MEDS ORDERED: LORAZEPAM 0.5 MG TABLET PO PRN (13:30)
[2018-10-28] MEDS ORDERED: TEMAZEPAM 7.5 MG CAPSULE PO PRN (13:30)
[2018-10-28] MEDS ORDERED: MAGNESIUM HYDROXIDE 30 ML UDC PO PRN ×2 (13:30→19:00)
[2018-10-28] MEDS ORDERED: ACETAMINOPHEN 325 MG TABLET PO PRN ×2 (13:30→19:00)
--- NOTE | 2018-10-28 13:30 | NUR ---
GPS-INDUSTRIAL REHABILITATION CONSULTANT NOTES: ADMITTED A [place]ZAMB[place] FEMALE FROM [facility]. ON 5250, PATIENT APPEARED LABILE IN MOOD. UPON FACE TO FACE ASSESSMENT, PATIENT IS ALERT, ORIENTED X1, UNKEMPT, DISHEVELED, EASILY GETS IRRITABLE. IN NO APPARENT DISTRESS NOTED. NO C/O OF PAIN OR DISCOMFORT. DENIES SI/HI OR HALLUCINATIONS AT THIS TIME. AMBULATORY. BELONGINGS WERE INVENTORIED AND CHECKED FOR CONTRABAND. PT. IS UNDER THE PSYCHIATRIC CARE OF DR. SERRANO ORDERS OBTAINED, AND UNDER THE MEDICAL CARE OF JENNIFER, NOTIFIED OF THE ADMISSION, MED RECON DONE. REFUSED FULL SKIN ASSESSMENT. SKIN APPEARS INTACT. BED LOCKED AND PLACED ON LOWEST POSITION TO MAINTAIN SAFETY. FALL PRECAUTIONS IMPLEMENTED. WILL CONTINUE TO MONITOR Q15 MINS. FOR SAFETY AND BEHAVIOR.
[2018-10-28] MEDS ORDERED: ASPI-1152 PO (13:39)
[2018-10-28] MEDS ORDERED: OLAN10VI IM (13:39)
[2018-10-28] MEDS ORDERED: MIRT7.5T10 PO (13:39)
[2018-10-28] MEDS ORDERED: ALLA266C2 TP (13:39)
--- NOTE | 2018-10-28 15:49 | NUR ---
RN-CO: PATIENT REFUSED SKIN ASSESSMENT.
[2018-10-28 16:00] VITALS: BP 125/69
--- NOTE | 2018-10-28 16:08 | NUR ---
RN-CO: PAGED DR RODRIGUEZ TO RECONCILE MEDICATIONS.AWAITING TO CALL BACK.
[2018-10-28] MEDS ORDERED: MECLIZINE HCL 12.5 MG TABLET PO SCH (17:00)
--- NOTE | 2018-10-28 17:24 | NUR ---
RN-CO: PAGED ROUGE MILLER MD TO RECONCILE HOME MEDICATIONS. AWAITING TO CALL BACK.
[2018-10-28] MEDS ORDERED: CALCIUM CARBONATE PO SCH (19:00)
[2018-10-28] MEDS ORDERED: FLUTICASONE/SALMETEROL DISKUS IH SCH (19:00)
[2018-10-28] MEDS ORDERED: [UNRECOGNIZED DRUG - OTHER] PO SCH (19:00)
[2018-10-28] MEDS ORDERED: cetrizine 10 MG TABLET PO SCH (19:00)
[2018-10-28] MEDS ORDERED: AMLODIPINE BESYLATE 5 MG TABLET PO SCH (19:00)
[2018-10-28] MEDS ORDERED: OXYBUTYNIN CHLORIDE ER 5 MG TAB PO SCH (19:00)
[2018-10-28] MEDS ORDERED: MECLIZINE HCL 25 MG TABLET PO SCH (19:00)
[2018-10-28] MEDS ORDERED: POTASSIUM CHLORIDE 20 MEQ TAB.PRT.SR PO SCH (19:00)
[2018-10-28] MEDS ORDERED: LOSARTAN POTASSIUM 50 MG TABLET PO SCH (19:00)
[2018-10-28] MEDS ORDERED: Medication Not On Formulary EA (Omega-3 Fatty Acids/Fish Oil (Fish Oil 1,000 Mg Capsule) PO SCH (19:00)
[2018-10-28] MEDS ORDERED: Medication Not On Formulary EA (Cyclosporine (Restasis) 1 DROP) EACHEYE SCH (19:00)
[2018-10-28] MEDS ORDERED: NITROGLYCERIN 0.4 MG/TAB BOTTLE SL PRN (19:00)
[2018-10-28] MEDS ORDERED: ASPIRIN EC 81 MG TABLET.DR PO SCH (19:00)
[2018-10-28] MEDS ORDERED: VITAMIN D3 PO SCH (19:00)
[2018-10-28] MEDS ORDERED: ALBUTEROL FS 2.5 MG/3 ML VIAL.NEB NEB PRN (19:30)
[2018-10-28 20:00] VITALS: BP 101/67
[2018-10-28] MEDS: DOCUSATE SODIUM 100 MG CAPSULE PO SCH (20:04)
[2018-10-28] MEDS: FAMOTIDINE (20 MG) 20 MG TABLET PO SCH (20:04)
[2018-10-28] MEDS: OLOPATADINE HCL 0.1% OPHTH BOTTLE EACHEYE SCH (20:05)
[2018-10-28] MEDS: FLUTICASONE/VILANTEROL 1 EACH BLST.W.DEV IH SCH (20:05)
[2018-10-28] MEDS: SUCRALFATE 1 G TABLET PO SCH (21:29)
[2018-10-28] MEDS: ATORVASTATIN 10 MG TABLET PO SCH (21:29)
[2018-10-29 08:00] VITALS: BP 120/59
[2018-10-29] MEDS: SUCRALFATE 1 G TABLET PO SCH ×4 (08:16→21:10)
[2018-10-29] MEDS: CALCIUM CARB 250MG /VITAMIN D 1 UDTAB PO SCH (08:16)
[2018-10-29] MEDS: DOCUSATE SODIUM 100 MG CAPSULE PO SCH ×2 (08:17→16:31)
[2018-10-29] MEDS: FAMOTIDINE (20 MG) 20 MG TABLET PO SCH ×2 (08:17→16:28)
[2018-10-29] MEDS: ASPIRIN EC 81 MG TABLET.DR PO SCH (08:19)
[2018-10-29] MEDS: POTASSIUM CHLORIDE 20 MEQ TAB.PRT.SR PO SCH (08:19)
[2018-10-29] MEDS: OLANZAPINE 2.5 MG TABLET PO SCH ×2 (08:20→16:28)
[2018-10-29] MEDS: cetrizine 10 MG TABLET PO SCH (08:20)
[2018-10-29] MEDS: OXYBUTYNIN CHLORIDE ER 5 MG TAB PO SCH (08:20)
[2018-10-29] MEDS: AMLODIPINE BESYLATE 5 MG TABLET PO SCH (08:25)
[2018-10-29] MEDS: LOSARTAN POTASSIUM 50 MG TABLET PO SCH (08:26)
[2018-10-29] MEDS: OLOPATADINE HCL 0.1% OPHTH BOTTLE EACHEYE SCH ×2 (08:28→16:30)
[2018-10-29] MEDS: FLUTICASONE/VILANTEROL 1 EACH BLST.W.DEV IH SCH (08:28)
[2018-10-29] MEDS: ENSURE ENLIVE CHOC 237 ML CAN PO SCH ×2 (10:16→16:28)
[2018-10-29] MEDS: MECLIZINE HCL 25 MG TABLET PO SCH ×3 (10:17→16:30)
[2018-10-29 11:45] LABS: CHOLESTEROL 116 mg/dL (<200); HDL CHOLESTEROL 47 mg/dL (40-60); LDL 57 mg/dL (0-99); TRIGLYCERIDES 96 mg/dL (30-150)
[2018-10-29 11:50] LABS: ALANINE AMINOTRANSFERASE 38 U/L (12-78); ALBUMIN 3.3 g/dL (3.4-5.0); ALKALINE PHOSPHATASE 58 U/L (46-116); ASPARTATE AMINOTRANSFERASE 20 U/L (15-37); BILIRUBIN,TOTAL 0.8 mg/dL (0.2-1.0); CALCIUM, SERUM 9.5 mg/dL (8.5-10.1); CARBON DIOXIDE 26 mmol/L (21-32); CHLORIDE 107 mmol/L (98-107); GLUCOSE 86 mg/dL (74-106); POTASSIUM 3.7 mmol/L (3.5-5.1); SODIUM SERUM 141 mmol/L (136-145); TOTAL PROTEIN, SERUM 6.5 g/dL (6.4-8.2); UREA NITROGEN, BLOOD 29 mg/dL (7-18)
[2018-10-29 16:00] VITALS: BP 130/73
[2018-10-29] MEDS ORDERED: ALENDRONATE 70 MG TABLET PO SCH (19:00)
[2018-10-29 20:00] VITALS: BP 109/74
[2018-10-29] MEDS: MIRTAZAPINE 15 MG TABLET PO SCH (21:11)
[2018-10-29] MEDS: ATORVASTATIN 10 MG TABLET PO SCH (21:11)
[2018-10-30] MEDS: CALCIUM CARB 250MG /VITAMIN D 1 UDTAB PO SCH (07:30)
[2018-10-30] MEDS: SUCRALFATE 1 G TABLET PO SCH ×4 (07:30→21:34)
[2018-10-30 08:00] VITALS: BP 143/70
[2018-10-30] MEDS: ENSURE ENLIVE CHOC 237 ML CAN PO SCH ×2 (08:00→17:00)
[2018-10-30] MEDS: FLUTICASONE/VILANTEROL 1 EACH BLST.W.DEV IH SCH (09:00)
[2018-10-30] MEDS: POTASSIUM CHLORIDE 20 MEQ TAB.PRT.SR PO SCH (09:00)
[2018-10-30] MEDS: OLANZAPINE 2.5 MG TABLET PO SCH ×2 (09:00→17:00)
[2018-10-30] MEDS: MECLIZINE HCL 25 MG TABLET PO SCH ×3 (09:00→17:00)
[2018-10-30] MEDS: ASPIRIN EC 81 MG TABLET.DR PO SCH (09:00)
[2018-10-30] MEDS: LOSARTAN POTASSIUM 50 MG TABLET PO SCH (09:00)
[2018-10-30] MEDS: AMLODIPINE BESYLATE 5 MG TABLET PO SCH (09:00)
[2018-10-30] MEDS: OXYBUTYNIN CHLORIDE ER 5 MG TAB PO SCH (09:00)
[2018-10-30] MEDS: cetrizine 10 MG TABLET PO SCH (09:00)
[2018-10-30] MEDS: OLOPATADINE HCL 0.1% OPHTH BOTTLE EACHEYE SCH ×2 (09:00→17:00)
[2018-10-30] MEDS: FAMOTIDINE (20 MG) 20 MG TABLET PO SCH ×2 (09:00→17:00)
[2018-10-30] MEDS: DOCUSATE SODIUM 100 MG CAPSULE PO SCH ×2 (09:00→17:00)
[2018-10-30] MEDS: OLANZAPINE 10 MG VIAL IM PRN ×2 (10:13→17:16)
[2018-10-30 16:00] VITALS: BP 107/68
[2018-10-30 19:29] VITALS: BP 143/67
--- NOTE | 2018-10-30 21:10 | NUR ---
GPS-RN PATIENT REFUSED TO TAKE ALL HER SCHEDULED MEDS. OFFERED X3, EXPLAINED RISKS AND BENEFITS. BUT PATIENT STILL STRONGLY REFUSED.
[2018-10-30] MEDS: ATORVASTATIN 10 MG TABLET PO SCH (21:34)
[2018-10-30] MEDS: MIRTAZAPINE 15 MG TABLET PO SCH (21:34)
[2018-10-31] MEDS: SUCRALFATE 1 G TABLET PO SCH ×4 (07:30→21:35)
[2018-10-31] MEDS: CALCIUM CARB 250MG /VITAMIN D 1 UDTAB PO SCH (07:30)
[2018-10-31 08:00] VITALS: BP 129/75
[2018-10-31] MEDS: ENSURE ENLIVE CHOC 237 ML CAN PO SCH ×2 (08:00→16:32)
[2018-10-31] MEDS: OXYBUTYNIN CHLORIDE ER 5 MG TAB PO SCH (09:00)
[2018-10-31] MEDS: MECLIZINE HCL 25 MG TABLET PO SCH ×3 (09:00→16:31)
[2018-10-31] MEDS: LOSARTAN POTASSIUM 50 MG TABLET PO SCH (09:00)
[2018-10-31] MEDS: ASPIRIN EC 81 MG TABLET.DR PO SCH (09:00)
[2018-10-31] MEDS: FLUTICASONE/VILANTEROL 1 EACH BLST.W.DEV IH SCH (09:00)
[2018-10-31] MEDS: cetrizine 10 MG TABLET PO SCH (09:00)
[2018-10-31] MEDS: OLOPATADINE HCL 0.1% OPHTH BOTTLE EACHEYE SCH ×2 (09:00→16:31)
[2018-10-31] MEDS: DOCUSATE SODIUM 100 MG CAPSULE PO SCH ×2 (09:00→16:32)
[2018-10-31] MEDS: POTASSIUM CHLORIDE 20 MEQ TAB.PRT.SR PO SCH (09:00)
[2018-10-31] MEDS: FAMOTIDINE (20 MG) 20 MG TABLET PO SCH ×2 (09:00→16:32)
[2018-10-31] MEDS: AMLODIPINE BESYLATE 5 MG TABLET PO SCH (09:00)
[2018-10-31] MEDS: OLANZAPINE 2.5 MG TABLET PO SCH (09:00)
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
[2018-10-31] MEDS: OLANZAPINE 10 MG VIAL IM PRN (10:55)
[2018-10-31 16:00] VITALS: BP 143/86
[2018-10-31] MEDS: HALOPERIDOL 5 MG TABLET PO SCH (16:32)
[2018-10-31] MEDS: HALOPERIDOL LACTATE INJ 5 MG/ML VIAL IM PRN (16:35)
[2018-10-31] MEDS ORDERED: BENZTROPINE MESYLATE (2MG/2ML) 2 MG/2 ML AMPUL IM PRN (19:00)
--- NOTE | 2018-10-31 19:30 | NUR ---
GPS RN NOTE, RECEIVED PATIENT AWAKE AND IN ROOM NO S/S OR COMPLAINTS OF PAIN AT THIS TIME. PATIENT IS DISPLAYING NO S/S OF APPARENT DISTRESS AT THIS TIME. PATIENT BREATHING IS UNLABORED WITH EQUAL RISE AND FALL OF THE CHEST. PATIENT IS ALERT AND ORIENTED X 1 ON ROOM AIR WITH A SPO2 0F 98%. PATIENT IS REFUSING MEDICATION, DISORGANIZED, DEPRESSED, COOPERATIVE, AND NEEDS REORIENTATION. PATIENT DENIES SUICIDE AND HOMICIDAL IDEATIONS AT THIS TIME. PATIENT ASSISTED WITH TURNING AND REPOSITIONING Q2HR AND PRN FOR COMFORT AND CIRCULATION. PATIENT HAS NO NEEDS AT THIS TIME. PATIENT EDUCATED ON THE USE OF THE CALL LOTT. PATIENT BED SIDE RAILS ARE UP X 2 FOR SAFETY, BED IS LOCKED AND LOW. WILL CONTINUE TO MONITOR AND MAINTAIN SAFETY Q15 MIN WITH THE HELP OF STAFF.
[2018-10-31 19:41] VITALS: BP 139/72
--- NOTE | 2018-10-31 20:46 | NUR ---
pt refused ekg consuelo bruner
[2018-10-31] MEDS: ATORVASTATIN 10 MG TABLET PO SCH (21:35)
--- NOTE | 2018-10-31 21:35 | NUR ---
GPS RN NOTE, PATIENT REFUSED TO TAKE CARAFATE 1 GM PO ACHS AND REFUSED TO TAKE LIPITOR 10 MG PO HS. OFFERED CARAFATE AND LIPITOR THREE TIMES AND STILL PATIENT REFUSED STATING, " NO I DON'T WANT MEDICATION NOW LEAVE ME ". EDUCATED THIS PATIENT ON THE RISKS AND BENEFITS OF TAKING AND REFUSING AFOREMENTIONED MEDICATION. WILL CONTINUE TO MONITOR THIS PATIENT.
[2018-11-01] MEDS: CALCIUM CARB 250MG /VITAMIN D 1 UDTAB PO SCH (07:30)
[2018-11-01] MEDS: SUCRALFATE 1 G TABLET PO SCH ×4 (07:30→21:59)
[2018-11-01 08:00] VITALS: BP 122/77
[2018-11-01] MEDS: ENSURE ENLIVE CHOC 237 ML CAN PO SCH ×2 (08:00→17:00)
[2018-11-01 08:58] LABS: CALCIUM, SERUM 9.2 mg/dL (8.5-10.1); CARBON DIOXIDE 27 mmol/L (21-32); CHLORIDE 107 mmol/L (98-107); CREATININE 1.1 mg/dL (0.6-1.3); GLUCOSE 94 mg/dL (74-106); POTASSIUM 3.6 mmol/L (3.5-5.1); SODIUM SERUM 144 mmol/L (136-145); UREA NITROGEN, BLOOD 38 mg/dL (7-18)
[2018-11-01] MEDS: POTASSIUM CHLORIDE 20 MEQ TAB.PRT.SR PO SCH (09:00)
[2018-11-01] MEDS: DOCUSATE SODIUM 100 MG CAPSULE PO SCH ×2 (09:00→17:00)
[2018-11-01] MEDS: HALOPERIDOL 5 MG TABLET PO SCH ×2 (09:00→17:00)
[2018-11-01] MEDS: MECLIZINE HCL 25 MG TABLET PO SCH ×3 (09:00→17:00)
[2018-11-01] MEDS: ASPIRIN EC 81 MG TABLET.DR PO SCH (09:00)
[2018-11-01] MEDS: FAMOTIDINE (20 MG) 20 MG TABLET PO SCH ×2 (09:00→17:00)
[2018-11-01] MEDS: OLOPATADINE HCL 0.1% OPHTH BOTTLE EACHEYE SCH ×2 (09:00→17:00)
[2018-11-01] MEDS: cetrizine 10 MG TABLET PO SCH (09:00)
[2018-11-01] MEDS: OXYBUTYNIN CHLORIDE ER 5 MG TAB PO SCH (09:00)
[2018-11-01] MEDS: BENZTROPINE MESYLATE (1 MG) 1 MG TABLET PO SCH ×2 (09:00→17:00)
[2018-11-01] MEDS: FLUTICASONE/VILANTEROL 1 EACH BLST.W.DEV IH SCH (09:00)
[2018-11-01] MEDS: AMLODIPINE BESYLATE 5 MG TABLET PO SCH (09:00)
[2018-11-01] MEDS: LOSARTAN POTASSIUM 50 MG TABLET PO SCH (09:00)
[2018-11-01 09:04] LABS: ALANINE AMINOTRANSFERASE 34 U/L (12-78); ALBUMIN 3.5 g/dL (3.4-5.0); ALKALINE PHOSPHATASE 67 U/L (46-116); ASPARTATE AMINOTRANSFERASE 23 U/L (15-37); BILIRUBIN,TOTAL 0.9 mg/dL (0.2-1.0); MAGNESIUM 1.5 mg/dL (1.8-2.4); TOTAL PROTEIN, SERUM 6.8 g/dL (6.4-8.2)
--- NOTE | 2018-11-01 10:16 | NUR ---
SW attempted to contact pts sister Dinah [phone]. SW left a voicemail for callback.
[2018-11-01] MEDS: HALOPERIDOL LACTATE INJ 5 MG/ML VIAL IM PRN (10:52)
--- NOTE | 2018-11-01 11:25 | NUR ---
REFUSED ALL AM MEDS INCLUDING HALDOL SO HALDOL INJECTION GIVEN.
[2018-11-01 11:44] LABS: EOSINOPHILS % (AUTO) 3.9 % (0.0-6.0); HEMATOCRIT 39 % (33-45); HEMOGLOBIN 12.8 g/dL (11.5-14.8); LYMPHOCYTES # (AUTO) 1.2 /CMM (0.8-4.8); LYMPHOCYTES % (AUTO) 25.2 % (20.0-44.0); MEAN CORPUSCULAR HGB CONC 33 g/dl (31.0-36.0); MEAN CORPUSCULAR VOLUME 86 fL (82-100); MONOCYTES # (AUTO) 0.5 /CMM (0.1-1.30); MONOCYTES % (AUTO) 10.7 % (2.0-12.0); NEUTROPHILS # (AUTO) 2.9 /CMM (1.8-8.9); NEUTROPHILS % (AUTO) 59.2 % (43.0-81.0); PLATELET COUNT (AUTO) 220 /CMM (150-450); RED BLOOD CELL COUNT(AUTO) 4.51 MIL/uL (4.0-5.2); WHITE BLOOD COUNT (AUTO) 4.8 K/uL (4.3-11.0)
--- NOTE | 2018-11-01 13:19 | NUR ---
Serene JOSEPH SKIVER OPERATOR NOTIFIED THAT PT'S MG LEVEL LOW.ANUPAM HE WILL FOLLOW UP.
--- NOTE | 2018-11-01 13:50 | NUR ---
SW attempted to contact pts sister Dinah [phone]. SW left a voicemail for callback.
[2018-11-01 16:00] VITALS: BP 129/74
[2018-11-01] MEDS ORDERED: HALOPERIDOL LACTATE INJ 5 MG/ML VIAL IM PRN (16:00)
[2018-11-01] MEDS ORDERED: MAGNESIUM OXIDE 400 MG TABLET PO STA (16:20)
--- NOTE | 2018-11-01 17:07 | NUR ---
GIVEN MG OXIDE FOR LOW MG LEVEL.
[2018-11-01 20:11] VITALS: BP 134/82
--- NOTE | 2018-11-01 21:57 | NUR ---
PATIENT TOOK HER NIGHT MEDICATIONS, ATORVASTATIN 10 MG AND SUCRALFATE 1 GM, CRUSHED MEDS MIXED WITH VANILLA PUDDING.
[2018-11-01] MEDS: ATORVASTATIN 10 MG TABLET PO SCH (21:59)
[2018-11-02 08:00] VITALS: BP 116/74
[2018-11-02] MEDS: LOSARTAN POTASSIUM 50 MG TABLET PO SCH (08:02)
[2018-11-02] MEDS: OXYBUTYNIN CHLORIDE ER 5 MG TAB PO SCH (08:02)
[2018-11-02] MEDS: cetrizine 10 MG TABLET PO SCH (08:02)
[2018-11-02] MEDS: HALOPERIDOL 5 MG TABLET PO SCH (08:02)
[2018-11-02] MEDS: FAMOTIDINE (20 MG) 20 MG TABLET PO SCH ×2 (08:03→17:02)
[2018-11-02] MEDS: ASPIRIN EC 81 MG TABLET.DR PO SCH (08:03)
[2018-11-02] MEDS: DOCUSATE SODIUM 100 MG CAPSULE PO SCH ×2 (08:03→17:03)
[2018-11-02] MEDS: AMLODIPINE BESYLATE 5 MG TABLET PO SCH (08:03)
[2018-11-02] MEDS: POTASSIUM CHLORIDE 20 MEQ TAB.PRT.SR PO SCH (08:03)
[2018-11-02] MEDS: BENZTROPINE MESYLATE (1 MG) 1 MG TABLET PO SCH ×2 (08:03→17:03)
[2018-11-02] MEDS: CALCIUM CARB 250MG /VITAMIN D 1 UDTAB PO SCH (08:03)
[2018-11-02] MEDS: SUCRALFATE 1 G TABLET PO SCH ×4 (08:03→21:52)
[2018-11-02] MEDS: ENSURE ENLIVE CHOC 237 ML CAN PO SCH ×2 (08:04→17:40)
[2018-11-02] MEDS: FLUTICASONE/VILANTEROL 1 EACH BLST.W.DEV IH SCH (08:19)
[2018-11-02] MEDS: OLOPATADINE HCL 0.1% OPHTH BOTTLE EACHEYE SCH ×2 (08:19→17:02)
[2018-11-02] MEDS: MECLIZINE HCL 25 MG TABLET PO SCH ×3 (08:20→17:03)
--- NOTE | 2018-11-02 10:46 | NUR ---
SW attempted to contact pts sister Dinah [phone]. SW left a voicemail for callback.
[2018-11-02] MEDS ORDERED: HALOPERIDOL LACTATE INJ 5 MG/ML VIAL IM PRN (12:30)
--- NOTE | 2018-11-02 12:52 | NUR ---
ANTIONE faxed SNF referral to [facility] Address: [address], [place] [address] for review.
--- NOTE | 2018-11-02 13:57 | NUR ---
SW received a call from Constance, talent development coordinator at [facility] Address: [address], [place] [address] stating pt has been accepted to the facility.
--- NOTE | 2018-11-02 14:40 | NUR ---
SW received a phone call from pts sister Dinah [phone], SW explained that psychiatrist is recommending pt be discharged to a SNF and also informed her pt has already been accepted to [facility]. Sister agrees and stated pt is not ready to return home and needs more help.
[2018-11-02 16:00] VITALS: BP 96/65
[2018-11-02] MEDS ORDERED: HALOPERIDOL 5 MG TABLET PO SCH (17:00)
[2018-11-02] MEDS: risperiDONE-M 0.5 MG TAB.RAPDIS PO SCH (17:02)
[2018-11-02 20:03] VITALS: BP 100/66
[2018-11-02] MEDS: ATORVASTATIN 10 MG TABLET PO SCH (21:52)
[2018-11-03 08:00] VITALS: BP 103/66
[2018-11-03 08:12] LABS: CALCIUM, SERUM 9.4 mg/dL (8.5-10.1); CARBON DIOXIDE 26 mmol/L (21-32); CHLORIDE 105 mmol/L (98-107); CREATININE 1.1 mg/dL (0.6-1.3); GLUCOSE 91 mg/dL (74-106); POTASSIUM 4.1 mmol/L (3.5-5.1); SODIUM SERUM 139 mmol/L (136-145); UREA NITROGEN, BLOOD 28 mg/dL (7-18)
[2018-11-03] MEDS: BENZTROPINE MESYLATE (1 MG) 1 MG TABLET PO SCH ×2 (08:36→16:30)
[2018-11-03] MEDS: cetrizine 10 MG TABLET PO SCH (08:36)
[2018-11-03] MEDS: ASPIRIN EC 81 MG TABLET.DR PO SCH (08:36)
[2018-11-03] MEDS: risperiDONE-M 0.5 MG TAB.RAPDIS PO SCH (08:36)
[2018-11-03] MEDS: DOCUSATE SODIUM 100 MG CAPSULE PO SCH ×2 (08:36→16:29)
[2018-11-03] MEDS: ENSURE ENLIVE CHOC 237 ML CAN PO SCH (08:36)
[2018-11-03] MEDS: CALCIUM CARB 250MG /VITAMIN D 1 UDTAB PO SCH (08:37)
[2018-11-03] MEDS: SUCRALFATE 1 G TABLET PO SCH ×4 (08:37→20:49)
[2018-11-03] MEDS: FAMOTIDINE (20 MG) 20 MG TABLET PO SCH ×2 (08:37→16:29)
[2018-11-03] MEDS: POTASSIUM CHLORIDE 20 MEQ TAB.PRT.SR PO SCH (08:37)
[2018-11-03] MEDS: LOSARTAN POTASSIUM 50 MG TABLET PO SCH (08:37)
[2018-11-03] MEDS: OXYBUTYNIN CHLORIDE ER 5 MG TAB PO SCH (08:37)
[2018-11-03] MEDS: AMLODIPINE BESYLATE 5 MG TABLET PO SCH (08:38)
[2018-11-03] MEDS: FLUTICASONE/VILANTEROL 1 EACH BLST.W.DEV IH SCH (08:39)
[2018-11-03] MEDS: MECLIZINE HCL 25 MG TABLET PO SCH ×3 (08:40→16:31)
[2018-11-03] MEDS: OLOPATADINE HCL 0.1% OPHTH BOTTLE EACHEYE SCH ×2 (08:40→16:31)
[2018-11-03] MEDS ORDERED: INVEGA SUSTENNA 156 MG SCH (15:00)
--- NOTE | 2018-11-03 15:53 | NUR ---
notified about the result of the EKG and said to give the [facility] IM.
[2018-11-03 16:00] VITALS: BP 100/63
--- NOTE | 2018-11-03 16:12 | NUR ---
Christ Lemos in the unit that BP meds not given in AM for a low BP.
[2018-11-03] MEDS: ENSURE ENLIVE 237 ML LIQUID (VANILLA) PO SCH (17:48)
[2018-11-03 20:00] VITALS: BP 112/75
[2018-11-03] MEDS: ATORVASTATIN 10 MG TABLET PO SCH (20:49)
--- NOTE | 2018-11-04 02:11 | NUR ---
REFUSED RESTORIL OFFERED FOR SLEEP.
[2018-11-04 08:00] VITALS: BP 106/70
[2018-11-04] MEDS: DOCUSATE SODIUM 100 MG CAPSULE PO SCH ×2 (08:41→16:23)
[2018-11-04] MEDS: OXYBUTYNIN CHLORIDE ER 5 MG TAB PO SCH (08:41)
[2018-11-04] MEDS: SUCRALFATE 1 G TABLET PO SCH ×4 (08:41→21:59)
[2018-11-04] MEDS: BENZTROPINE MESYLATE (1 MG) 1 MG TABLET PO SCH ×3 (08:41→16:22)
[2018-11-04] MEDS: cetrizine 10 MG TABLET PO SCH (08:41)
[2018-11-04] MEDS: ASPIRIN EC 81 MG TABLET.DR PO SCH (08:41)
[2018-11-04] MEDS: CALCIUM CARB 250MG /VITAMIN D 1 UDTAB PO SCH (08:41)
[2018-11-04] MEDS: POTASSIUM CHLORIDE 20 MEQ TAB.PRT.SR PO SCH (08:41)
[2018-11-04] MEDS: FAMOTIDINE (20 MG) 20 MG TABLET PO SCH ×2 (08:41→16:22)
[2018-11-04] MEDS: AMLODIPINE BESYLATE 5 MG TABLET PO SCH (08:42)
[2018-11-04] MEDS: OLOPATADINE HCL 0.1% OPHTH BOTTLE EACHEYE SCH ×2 (08:46→17:26)
[2018-11-04] MEDS: MECLIZINE HCL 25 MG TABLET PO SCH ×3 (08:46→17:24)
[2018-11-04] MEDS: FLUTICASONE/VILANTEROL 1 EACH BLST.W.DEV IH SCH (08:46)
[2018-11-04] MEDS: ENSURE ENLIVE 237 ML LIQUID (VANILLA) PO SCH ×2 (08:49→17:24)
[2018-11-04] MEDS: LOSARTAN POTASSIUM 50 MG TABLET PO SCH (08:50)
[2018-11-04 16:00] VITALS: BP 104/72
[2018-11-04 20:00] VITALS: BP 105/57
[2018-11-04] MEDS: ATORVASTATIN 10 MG TABLET PO SCH (21:59)
[2018-11-05] MEDS: SUCRALFATE 1 G TABLET PO SCH ×4 (07:30→21:11)
[2018-11-05 08:00] VITALS: BP 120/85
[2018-11-05] MEDS: DOCUSATE SODIUM 100 MG CAPSULE PO SCH ×2 (10:36→18:28)
[2018-11-05] MEDS: AMLODIPINE BESYLATE 5 MG TABLET PO SCH (10:37)
[2018-11-05] MEDS: LOSARTAN POTASSIUM 50 MG TABLET PO SCH (10:37)
[2018-11-05] MEDS: CALCIUM CARB 250MG /VITAMIN D 1 UDTAB PO SCH (10:38)
[2018-11-05] MEDS: ASPIRIN EC 81 MG TABLET.DR PO SCH (10:38)
[2018-11-05] MEDS: cetrizine 10 MG TABLET PO SCH (10:38)
[2018-11-05] MEDS: POTASSIUM CHLORIDE 20 MEQ TAB.PRT.SR PO SCH (10:38)
[2018-11-05] MEDS: BENZTROPINE MESYLATE (1 MG) 1 MG TABLET PO SCH ×3 (10:38→18:27)
[2018-11-05] MEDS: FAMOTIDINE (20 MG) 20 MG TABLET PO SCH ×2 (10:39→18:28)
[2018-11-05] MEDS: OLOPATADINE HCL 0.1% OPHTH BOTTLE EACHEYE SCH ×2 (10:42→18:27)
[2018-11-05] MEDS: FLUTICASONE/VILANTEROL 1 EACH BLST.W.DEV IH SCH (10:42)
[2018-11-05] MEDS: MECLIZINE HCL 25 MG TABLET PO SCH ×3 (10:42→18:27)
[2018-11-05] MEDS: ENSURE ENLIVE 237 ML LIQUID (VANILLA) PO SCH ×2 (10:55→18:32)
[2018-11-05] MEDS: OXYBUTYNIN CHLORIDE ER 5 MG TAB PO SCH (10:55)
--- NOTE | 2018-11-05 14:55 | NUR ---
MEDICATED FOR HEADACHE WITH TYLENOL 650 MG PO.
[2018-11-05 16:00] VITALS: BP 100/60
[2018-11-05 20:00] VITALS: BP 100/66
[2018-11-05] MEDS: ATORVASTATIN 10 MG TABLET PO SCH (21:11)
[2018-11-06] MEDS ORDERED: ALENDRONATE 70 MG TABLET PO SCH (07:30)
[2018-11-06 08:00] VITALS: BP 113/75
[2018-11-06] MEDS: SUCRALFATE 1 G TABLET PO SCH ×4 (08:13→22:12)
[2018-11-06] MEDS: AMLODIPINE BESYLATE 5 MG TABLET PO SCH (08:13)
[2018-11-06] MEDS: DOCUSATE SODIUM 100 MG CAPSULE PO SCH ×2 (08:13→16:19)
[2018-11-06] MEDS: LOSARTAN POTASSIUM 50 MG TABLET PO SCH (08:13)
[2018-11-06] MEDS: CALCIUM CARB 250MG /VITAMIN D 1 UDTAB PO SCH (08:14)
[2018-11-06] MEDS: OXYBUTYNIN CHLORIDE ER 5 MG TAB PO SCH (08:14)
[2018-11-06] MEDS: cetrizine 10 MG TABLET PO SCH (08:14)
[2018-11-06] MEDS: POTASSIUM CHLORIDE 20 MEQ TAB.PRT.SR PO SCH (08:14)
[2018-11-06] MEDS: FAMOTIDINE (20 MG) 20 MG TABLET PO SCH ×2 (08:15→16:19)
[2018-11-06] MEDS: BENZTROPINE MESYLATE (1 MG) 1 MG TABLET PO SCH ×3 (08:15→16:19)
[2018-11-06] MEDS: ASPIRIN EC 81 MG TABLET.DR PO SCH (08:15)
[2018-11-06] MEDS: ENSURE ENLIVE 237 ML LIQUID (VANILLA) PO SCH ×2 (08:16→16:20)
[2018-11-06] MEDS: OLOPATADINE HCL 0.1% OPHTH BOTTLE EACHEYE SCH ×2 (08:19→16:20)
[2018-11-06] MEDS: MECLIZINE HCL 25 MG TABLET PO SCH ×3 (08:19→16:20)
[2018-11-06] MEDS: FLUTICASONE/VILANTEROL 1 EACH BLST.W.DEV IH SCH (08:19)
[2018-11-06 16:00] VITALS: BP 115/69
[2018-11-06 20:19] VITALS: BP 110/70
[2018-11-06] MEDS: ATORVASTATIN 10 MG TABLET PO SCH (22:12)
[2018-11-07 08:00] VITALS: BP 120/76
[2018-11-07] MEDS: SUCRALFATE 1 G TABLET PO SCH ×4 (08:13→22:01)
[2018-11-07] MEDS: CALCIUM CARB 250MG /VITAMIN D 1 UDTAB PO SCH (08:13)
[2018-11-07] MEDS: FLUTICASONE/VILANTEROL 1 EACH BLST.W.DEV IH SCH (08:54)
[2018-11-07] MEDS: OLOPATADINE HCL 0.1% OPHTH BOTTLE EACHEYE SCH ×2 (08:54→16:14)
[2018-11-07] MEDS: MECLIZINE HCL 25 MG TABLET PO SCH ×3 (08:55→16:15)
[2018-11-07] MEDS: AMLODIPINE BESYLATE 5 MG TABLET PO SCH (08:56)
[2018-11-07] MEDS: LOSARTAN POTASSIUM 50 MG TABLET PO SCH (08:56)
[2018-11-07] MEDS: DOCUSATE SODIUM 100 MG CAPSULE PO SCH ×2 (08:56→16:13)
[2018-11-07] MEDS: POTASSIUM CHLORIDE 20 MEQ TAB.PRT.SR PO SCH (08:56)
[2018-11-07] MEDS: OXYBUTYNIN CHLORIDE ER 5 MG TAB PO SCH (08:57)
[2018-11-07] MEDS: ASPIRIN EC 81 MG TABLET.DR PO SCH (08:57)
[2018-11-07] MEDS: cetrizine 10 MG TABLET PO SCH (08:57)
[2018-11-07] MEDS: BENZTROPINE MESYLATE (1 MG) 1 MG TABLET PO SCH ×3 (08:58→16:14)
[2018-11-07] MEDS: ENSURE ENLIVE 237 ML LIQUID (VANILLA) PO SCH ×2 (08:59→16:13)
[2018-11-07] MEDS: FAMOTIDINE (20 MG) 20 MG TABLET PO SCH ×2 (09:00→16:14)
--- NOTE | 2018-11-07 14:59 | NUR ---
ANTIONE attempted to contact pts sister Dinah [phone]. SW left a voicemail informing her pt is discharging tomorrow 11/08/18 to [facility].
[2018-11-07 16:00] VITALS: BP 125/82
[2018-11-07 19:50] VITALS: BP 114/86
[2018-11-07] MEDS: ATORVASTATIN 10 MG TABLET PO SCH (22:00)
[2018-11-08] MEDS: SUCRALFATE 1 G TABLET PO SCH ×2 (07:57→12:04)
[2018-11-08] MEDS: CALCIUM CARB 250MG /VITAMIN D 1 UDTAB PO SCH (07:57)
[2018-11-08 08:00] VITALS: BP 102/67
[2018-11-08] MEDS: MECLIZINE HCL 25 MG TABLET PO SCH ×2 (08:10→12:04)
[2018-11-08] MEDS: FLUTICASONE/VILANTEROL 1 EACH BLST.W.DEV IH SCH (08:10)
[2018-11-08] MEDS: POTASSIUM CHLORIDE 20 MEQ TAB.PRT.SR PO SCH (08:10)
[2018-11-08] MEDS: cetrizine 10 MG TABLET PO SCH (08:10)
[2018-11-08] MEDS: OLOPATADINE HCL 0.1% OPHTH BOTTLE EACHEYE SCH (08:10)
[2018-11-08 08:11] VITALS: BP 102/67
[2018-11-08] MEDS: ASPIRIN EC 81 MG TABLET.DR PO SCH (08:11)
[2018-11-08] MEDS: OXYBUTYNIN CHLORIDE ER 5 MG TAB PO SCH (08:11)
[2018-11-08] MEDS: LOSARTAN POTASSIUM 50 MG TABLET PO SCH (08:11)
[2018-11-08] MEDS: AMLODIPINE BESYLATE 5 MG TABLET PO SCH (08:11)
[2018-11-08] MEDS: DOCUSATE SODIUM 100 MG CAPSULE PO SCH (08:11)
[2018-11-08] MEDS: FAMOTIDINE (20 MG) 20 MG TABLET PO SCH (08:11)
[2018-11-08] MEDS: ENSURE ENLIVE 237 ML LIQUID (VANILLA) PO SCH (08:48)
[2018-11-08] MEDS ORDERED: BENZTROPINE MESYLATE (1 MG) 1 MG TABLET PO SCH (09:00)
--- NOTE | 2018-11-08 11:26 | NUR ---
DISCHARGE NOTE: Pt will be discharged at 2:00pm via [id number] trip #[id number] [facility] ([facility]) [address] [address] [id number] . Pts sister Dinah [phone] has been notified via voicemail. Pts mood is paranoid and confused with congruent affect. Pt denied visual/auditory hallucinations and denied suicidal/homicidal ideation. Pt will be under the care of Psychiatrist: Dr. Nicole Howe [address], [place] [address] [phone] and Hydroelectric Station Operator: Dr. Clyde Montenegro Address: [address], [place] [address] . The multidisciplinary exitcare form was done, printed, signed, and given to the patient.
--- NOTE | 2018-11-08 14:39 | NUR ---
PT WAS DISCHARGED TODAY AT 1430 TO [facility] ([facility]) LOCATED AT [id number] [place] [id number] . PT LEFT THE UNIT VIA GURNEY ACCOMPANIED BY 2 GEAR NICKER. PT IS A&OX2, CALM, COOPERATIVE, PLEASANT, MED COMPLIANT, DENIES SI/HI AT THE TIME OF DISCHARGE, FORGETFUL AT TIMES, REDIRECTABLE. PT WAS COOPERATIVE WITH DISCHARGE PROCESS BUT REFUSED TO SIGN ALL DISCHARGE PAPERWORK. PT REFUSED SKIN ASSESSMENT AND PICTURES TO BE TAKEN AT DISCHARGE. VS: 125/80, 82, 16, 93%RA, 0/10 PAIN. REPORT WAS GIVEN TO PAUL SANDHU AT [phone].
== END 2018-11-08 14:30 | DRG 885 ==
LOC: GPS 13:00
PROVIDERS: ADMIT Psychiatry & Neurology Psychosomatic Medicine; ATTEND Internal Medicine
DX: F25.0 Schizoaffective disorder, bipolar type (principal); F01.51 Vascular dementia, unspecified severity, with behavioral disturbance; N17.0 Acute kidney failure with tubular necrosis; G93.41 Metabolic encephalopathy; I21.A1 Myocardial infarction type 2; F03.91 Unspecified dementia, unspecified severity, with behavioral disturbance; F29 Unspecified psychosis not due to a substance or known physiological condition; K21.9 Gastro-esophageal reflux disease without esophagitis; I10 Essential (primary) hypertension; Z87.11 Personal history of peptic ulcer disease; F32.9 Major depressive disorder, single episode, unspecified; E87.6 Hypokalemia; E83.42 Hypomagnesemia; Z79.82 Long term (current) use of aspirin; Z79.899 Other long term (current) drug therapy; F22 Delusional disorders
CPT/HCPCS: 36415; 80048-TC; 80053-TC; 80061-TC; 83735-TC; 85025-TC; 87081-TC; J1630; J3490; J8597

== ENCOUNTER 2024-04-25 09:43 | Emergency (ER) | payer MEDICARE, OTHER ==
[~2024-04-25] VITALS: Ht 152.4 cm; Wt 49.9 kg
[~2024-04-25 09:43] MED LIST changes: -ALEN70TA6 PO; +ALEN70TA80 PO; +ALLA266C2 TP; +AMLO-212 PO; -AMLO5TAB9 PO; +ASPI-1420 PO; -ASPI-605 PO; -CETI-102 PO; +CETI-90 PO; -LEVO250T59 PO; -LORA0.5T PO; -MECL-102 PO; +MECL-159 PO; -OLAN2.5T3 PO; +OXYB-58 PO; -OXYB5TAB PO; -PARO20TA7 PO; -RISP0.253 PO; -TEMA7.5C12 PO
[2024-04-25 10:27] LABS: BASOPHILS % (AUTO) 0.7 % (0.0-2.0); EOSINOPHILS # (AUTO) 0.2 K/uL (0.0-0.7); EOSINOPHILS % (AUTO) 4.5 % (0.0-6.0); HEMATOCRIT 35 % (33-45); HEMOGLOBIN 11.2 g/dL (11.5-14.8); LYMPHOCYTES # (AUTO) 1.4 K/uL (0.8-4.8); MEAN CORPUSCULAR HEMOGLOBIN 31 PG (26.0-33.0); MEAN CORPUSCULAR HGB CONC 32 g/dl (31.0-36.0); MEAN CORPUSCULAR VOLUME 94 fL (82-100); MONOCYTES # (AUTO) 0.4 K/uL (0.1-1.30); MONOCYTES % (AUTO) 7.2 % (2.0-12.0); NEUTROPHILS # (AUTO) 3.1 K/uL (1.8-8.9); NEUTROPHILS % (AUTO) 60.6 % (43.0-81.0); PLATELET COUNT (AUTO) 154 K/uL (150-450); RED BLOOD CELL COUNT(AUTO) 3.68 MIL/uL (4.0-5.2); RED CELL DISTRIBUTION WIDTH 15.5 % (11.5-15.0); WHITE BLOOD COUNT (AUTO) 5.1 K/uL (4.3-11.0)
[2024-04-25 10:43] LABS: ACETAMINOPHEN < 10 ug/ml (10-30); ALANINE AMINOTRANSFERASE 13 U/L (12-78); ALBUMIN 3.4 g/dL (3.4-5.0); ALKALINE PHOSPHATASE 54 U/L (46-116); ASPARTATE AMINOTRANSFERASE 15 U/L (15-37); BILIRUBIN,DIRECT 0.3 mg/dL (0.0-0.2); BILIRUBIN,TOTAL 1.3 mg/dL (0.2-1.0); CALCIUM, SERUM 9.2 mg/dL (8.5-10.1); CARBON DIOXIDE 26 mmol/L (21-32); CHLORIDE 110 mmol/L (98-107); CREATININE 1.3 mg/dL (0.6-1.3); GLUCOSE 89 mg/dL (74-106); POTASSIUM 3.4 mmol/L (3.5-5.1); SODIUM SERUM 145 mmol/L (136-145); TOTAL PROTEIN, SERUM 6.1 g/dL (6.4-8.2); UREA NITROGEN, BLOOD 39 mg/dL (7-18)
[2024-04-25 10:44] LABS: SALICYLATE < 0.2 mg/dL (2.8-20.0)
[2024-04-25 10:45] LABS: ALCOHOL, BLOOD < 3 mg/dL (0-10)
[2024-04-25 11:29] LABS: ADD URINE CULTURE NO; APPEARANCE,URINE CLEAR (CLEAR); BACTERIA,URINE Rare /HPF (None Seen); BILIRUBIN,URINE NEGATIVE (NEGATIVE); BLOOD, URINE NEGATIVE Ery/uL (NEGATIVE); COLOR,URINE YELLOW (YELLOW); KETONES,URINE NEGATIVE (NEGATIVE); LEUKOCYTE ESTERASE ,URINE TRACE (NEGATIVE); NITRITE, URINE NEGATIVE (NEGATIVE); PROTEIN,URINE NEGATIVE (NEGATIVE); RBC,URINE 0-2 /HPF (0-2); SQUAMOUS EPITHELIAL CELL,UR Few /HPF (None Seen); UGLUCOSE NEGATIVE (NEGATIVE); UROBILINOGEN,URINE 0.2 EU/dL (0.2)
[2024-04-25 11:49] LABS: AMPHETAMINE, URINE NEGATIVE (NEGATIVE); BARBITURATE, URINE NEGATIVE (NEGATIVE); BENZODIAZEPINE, URINE NEGATIVE (NEGATIVE); CANNABINOID, URINE NEGATIVE (NEGATIVE); COCCAINE, URINE NEGATIVE (NEGATIVE); OPIATE, URINE NEGATIVE (NEGATIVE); PHENCYCLIDINE SCREEN,URINE NEGATIVE (NEGATIVE)
[2024-04-25 13:30] VITALS: BP 120/90; O2SAT 98
== END 2024-04-25 13:37 ==
LOC: ER 09:45
DX: F03.90 Unspecified dementia, unspecified severity, without behavioral disturbance, psychotic disturbance, mood disturbance, and anxiety (principal); I10 Essential (primary) hypertension; Z88.0 Allergy status to penicillin; Z88.6 Allergy status to analgesic agent; Z20.822 Contact with and (suspected) exposure to COVID-19
CPT/HCPCS: 36415; 80048-TC; 80076-TC; 81001; 85025-TC; G0480